=== PATIENT | female | born 1985 | race American Indian/Alaskan Native ===

== ENCOUNTER 2016-06-15 22:18 | Emergency (ER) | payer MEDICARE ==
[2016-06-16 00:05] VITALS: BP 148/105
[2016-06-16 02:15] LABS: Basophils % (Auto) 0.7 % (0.0-1.8); Eosinophils % (Auto) 2.2 % (0.0-4.3); Hematocrit 33.3 % (30.3-42.9); Hemoglobin 10.9 gm/dl (10.1-14.3); Mean Corpuscular HGB Conc 33 % (30-34); Mean Corpuscular Hemoglobin 30 pg (28-32); Mean Corpuscular Volume 92 fl (79-97); Platelet Count 139 K/mm3 (140-440); Red Blood Count 3.62 M/mm3 (3.65-5.03); White Blood Count 6.5 K/mm3 (4.5-11.0)
--- NOTE | 2016-06-16 05:17 | Emergency Department Report ---
HPI - General Chief Complaint: Vaginal Bleeding Time Seen by Provider: 06/16/16 04:41 - HPI HPI: The patient is a 30-year-old female presents for evaluation of abdominal pain and vaginal bleeding. The patient reports midline lower abdominal pain, crampy in quality, present for 24 hours, mild in severity, and associated with mild vaginal bleeding. She says that she has not had a period in 2 months. She states that she received a positive test one week ago. The patient denies fever, chills, night sweats, diarrhea, blood in the stool, dark tarry stool, dysuria, hematuria, flank pain, genital discharge, inability to pass flatus. ED Past Medical Hx - Past Medical History Hx Hypertension: Yes Hx Renal Disease: Yes (Hemodialysis on M-W-F) Additional medical history: diaylsis M, W, F - Surgical History Additional Surgical History: kidney transplant- pt states rejected kidney - Social History Smoking Status: Never Smoker Substance Use Type: None - Medications Home Medications: Home Medications Medication Instructions Recorded Confirmed Last Taken Type Doxazosin [Cardura] 1 mg PO QDAY 05/04/13 10/08/13 10/08/13 02:00 History Isosorb Dinit/Hydralazine [Bidil 1 tab PO BID 05/04/13 10/08/13 10/08/13 02:00 History 20/37.5MG] hydrALAZINE [Apresoline TAB] 25 mg PO BID 05/04/13 10/08/13 10/08/13 02:00 History Carvedilol [Coreg] 25 mg PO BID 10/08/13 10/08/13 10/07/13 23:00 History NIFEdipine [Nifedipine ER] 60 mg PO BID 10/08/13 10/08/13 10/07/13 23:00 History Sevelamer Carbonate [Renvela] 800 mg PO TIDWM 10/08/13 10/08/13 10/07/13 23:00 History ED Review of Systems ROS: Stated complaint: 8WKS PREG/BLEEDING Other details as noted in HPI Constitutional: denies: fever ENT: denies: throat or neck pain Respiratory: denies: cough, shortness of breath Cardiovascular: denies: chest pain Endocrine: denies unexplained weight loss or gain Gastrointestinal: reports abdominal pain, nausea Genitourinary: denies: dysuria reports VB Musculoskeletal: denies: leg swelling Skin: denies: rash Neurological: denies: headache Hematological/Lymphatic: denies: easy bleeding or easy bruising Psych: denies sadness or hopelessness Physical Exam - Physical Exam Vital Signs: Vital Signs 06/16/16 06/16/16 00:03 01:01 Temperature 98.3 F 98.3 F Pulse Rate 97 H 97 H Respiratory 20 20 Rate Blood Pressure 148/105 Blood Pressure 148/105 [Right] O2 Sat by Pulse 100 100 Oximetry Physical Exam: General: well-nourished, well-developed, no acute distress Head: Normocephalic, atraumatic Eyes: normal sclera ENT: Mucous membranes are pink and moist Neck: trachea midline, neck supple, No neck stiffness, no cervical adenopathy Respiratory: Breath sounds equal bilaterally, no wheezing, rales, or rhonchi Cardio: S1 and S2 present, no murmurs, rubs, gallops, capillary refill is brisk Abdomen: Normoactive bowel sounds, soft abdomen, suprapubic tenderness to palpation present, no rigidity, no guarding or rebound tenderness Chest WALL/Back: No tenderness to palpation of the chest wall, no CVA tenderness with percussion Musc: No pitting edema Skin: No rash Neuro: no facial drooping, normal speech Psych: Normal affect ED Course Vital Signs 06/16/16 06/16/16 00:03 01:01 Temperature 98.3 F 98.3 F Pulse Rate 97 H 97 H Respiratory 20 20 Rate Blood Pressure 148/105 Blood Pressure 148/105 [Right] O2 Sat by Pulse 100 100 Oximetry ED Medical Decision Making - Lab Data Result diagrams: 06/16/16 01:53 - Medical Decision Making The patient was seen and examined by myself. The patient is placed on a engine monitor and continuous pulse ox. On initial evaluation, the patient was found to be in no distress. Evaluation orders were placed. The patient declined pelvic exam. The patient declined pain medicine. Lab results are reassuring including non-concerning levels of RBC, hemoglobin, hematocrit, and negative test. As the patient has not concerning levels of RBC, hemoglobin, hematocrit, with normal vital signs, and there is no evidence of severe bleeding requiring transfusion or other emergent management at this time , the patient is stable for discharge with outpatient follow-up. The patient is given follow-up and return instructions. The patient expressed understanding and agreed with the plan. The patient is discharged in stable condition. Critical care attestation.: If time is entered above; I have spent that time in minutes in the direct care of this critically ill patient, excluding procedure time. ED Disposition Clinical Impression: Vaginal bleeding, Suprapubic abdominal pain Disposition: DISCHARGED TO HOME OR SELFCARE Is pt being admited?: No Does the pt Need Aspirin: No Condition: Stable Instructions: Dysmenorrhea (ED), Dysfunctional Uterine Bleeding (ED) Referrals: PRIMARY CARE, [Primary Care Provider] - 3-5 Days Time of Disposition: 05:00
== END 2016-06-16 05:15 | disposition home or self-care (01) ==
LOC: ED 22:18
DX: N93.9 Abnormal uterine and vaginal bleeding, unspecified (principal); R10.30 Lower abdominal pain, unspecified; I10 Essential (primary) hypertension; N28.9 Disorder of kidney and ureter, unspecified
CPT/HCPCS: 36415; 84702; 85025; 86850; 86900; 86901; 99283

== ENCOUNTER 2018-06-06 10:12 | Observation (INO) | payer MEDICARE ==
--- NOTE | 2018-06-06 10:40 | Emergency Department Report ---
ED General Adult HPI - General Chief complaint: Dyspnea/Respdistress Stated complaint: DIALYSIS TREATMENT Time Seen by Provider: 06/06/18 10:38 Source: patient Mode of arrival: Ambulatory Limitations: No Limitations - History of Present Illness Initial comments: Patient is a 32-year-old -Maldivian female who comes to the ER today complaining of fatigue. She states that she just does not feel good. She also reports that she is short of breath. Patient does home HD last done on last Wednesday. She has a left arm graft. The reason she has not done her HD is because she has been traveling and her machine has not return to the [place] [facility]. Home medications include hydralazine Coreg nifedipine arexia Patient does have a PCP Dr. Gutierres, the patient is unsure of her last name. Past medical history chronic kidney disease on HD hypertension -: Gradual Associated Symptoms: shortness of breath, weakness. denies: chest pain Treatments Prior to Arrival: none - Related Data Home Medications Medication Instructions Recorded Confirmed Last Taken Carvedilol [Coreg] 25 mg PO BID 10/08/13 06/06/18 06/05/18 NIFEdipine [Nifedipine ER] 60 mg PO BID 10/08/13 06/06/18 06/05/18 Cholecalciferol (Vitamin D3) 50,000 unit PO QWEEK 06/06/18 06/06/18 Unknown [Vitamin D3] Ferric Citrate (Nf) [Auryxia (Nf)] 420 mg PO TIDWM 06/06/18 06/06/18 06/05/18 cloNIDine [Catapres] 0.1 mg PO QHS 06/06/18 06/06/18 Unknown hydrALAZINE [Apresoline TAB] 100 mg PO BID 06/06/18 06/06/18 06/05/18 Allergies Allergy/AdvReac Type Severity Reaction Status Date / Time SUNDAR Inhibitors Allergy Angioedema Verified 10/08/13 03:34 ED Review of Systems ROS: Stated complaint: DIALYSIS TREATMENT Other details as noted in HPI Comment: All other systems reviewed and negative Constitutional: denies: chills, fever Eyes: denies: eye pain ENT: denies: ear pain Respiratory: see HPI, shortness of breath. denies: cough Cardiovascular: as per HPI. denies: chest pain Endocrine: denies: flushing Gastrointestinal: denies: abdominal pain Genitourinary: as per HPI, other (anuric). denies: urgency Musculoskeletal: denies: back pain Skin: denies: rash Neurological: as per HPI, weakness Psychiatric: denies: anxiety Hematological/Lymphatic: denies: easy bleeding ED Past Medical Hx - Past Medical History Previous Medical History?: Yes Hx Hypertension: Yes Hx Renal Disease: Yes (Hemodialysis on M-W-F) Additional medical history: diaylsis M, W, F; anemia - Surgical History Past Surgical History?: Yes Additional Surgical History: kidney transplant- pt states rejected kidney - Family History Family history: no significant - Social History Smoking Status: Former Smoker Substance Use Type: None - Medications Home Medications: Home Medications Medication Instructions Recorded Confirmed Last Taken Type Carvedilol [Coreg] 25 mg PO BID 10/08/13 06/06/18 06/05/18 History NIFEdipine [Nifedipine ER] 60 mg PO BID 10/08/13 06/06/18 06/05/18 History Cholecalciferol (Vitamin D3) 50,000 unit PO QWEEK 06/06/18 06/06/18 Unknown History [Vitamin D3] Ferric Citrate (Nf) [Auryxia (Nf)] 420 mg PO TIDWM 06/06/18 06/06/18 06/05/18 History cloNIDine [Catapres] 0.1 mg PO QHS 06/06/18 06/06/18 Unknown History hydrALAZINE [Apresoline TAB] 100 mg PO BID 06/06/18 06/06/18 06/05/18 History ED Physical Exam - General Limitations: No Limitations General appearance: alert - Head Head exam: Present: normocephalic - Eye Eye exam: Present: PERRL, EOMI - ENT ENT exam: Present: mucous membranes moist - Neck Neck exam: Present: normal inspection - Respiratory Respiratory exam: Present: normal lung sounds bilaterally, rales (B BASES) - Cardiovascular Cardiovascular Exam: Present: regular rate - GI/Abdominal GI/Abdominal exam: Present: soft, other (ROUND) - Rectal Rectal exam: Present: deferred - Extremities Exam Extremities exam: Present: normal inspection, other (AV GRAFT LA) - Back Exam Back exam: Present: normal inspection - Neurological Exam Neurological exam: Present: alert, oriented X3, normal gait - Psychiatric Psychiatric exam: Present: normal affect, normal mood - Skin Skin exam: Present: warm, dry, intact ED Course Vital Signs 06/06/18 06/06/18 10:20 12:42 Temperature 97.7 F Pulse Rate 93 H Respiratory 20 16 Rate Blood Pressure 144/101 O2 Sat by Pulse 98 Oximetry - Reevaluation(s) Reevaluation #1: 06/06/18 12:14 last hgb per pt 7 Reevaluation #2: 06/06/18 12:[address] Zamora- will admit discussed with Dr Briceño- he will see pt bed requested pt to main ED Reevaluation #3: 06/06/18 12:[address] Lynn ED Medical Decision Making - Lab Data Result diagrams: 06/06/18 11:30 06/06/18 11:30 - EKG Data -: EKG Interpreted by Me EKG shows normal: sinus rhythm - Radiology Data Radiology results: report reviewed, image reviewed - Medical Decision Making Labs 06/06/18 06/06/18 06/06/18 11:30 11:30 11:30 WBC 8.5 RBC 1.83 L Hgb 5.5 L* Hct 16.6 L* MCV 91 MCH 30 MCHC 33 RDW 19.3 H Plt Count 201 Sodium 131 L Potassium 6.8 H* Chloride 90.6 L Carbon Dioxide 19 L Anion Gap 28 BUN 78 H Creatinine 14.7 H Estimated GFR 3 BUN/Creatinine Ratio 5 Glucose 87 Calcium 8.6 Phosphorus 6.40 H NT-Pro-B Natriuret Pep 33052 H HCG, Qual Negative Vital Signs 06/06/18 06/06/18 10:20 12:42 Temperature 97.7 F Pulse Rate 93 H Respiratory 20 16 Rate Blood Pressure 144/101 O2 Sat by Pulse [address] ZAMORA NEPHROLOGY WILL DO HD K NOTED- D50, INSULIN, BICARB MOVED TO MAIN ED FOR MONITORING REPORT TO DR LYNN Critical care attestation.: If time is entered above; I have spent that time in minutes in the direct care of this critically ill patient, excluding procedure time. ED Disposition Clinical Impression: Fatigue, CKD (chronic kidney disease), Hyperkalemia Disposition: OP ADMIT IP TO THIS HOSP Is pt being admited?: Yes Does the pt Need Aspirin: No Condition: Stable Time of Disposition: 12:17
[2018-06-06 11:45] LABS: Mean Corpuscular HGB Conc 33 % (30-34); Mean Corpuscular Volume 91 fl (79-97); Platelet Count 201 K/mm3 (140-440); Red Blood Count 1.83 M/mm3 (3.65-5.03); Red Cell Distribution Width 19.3 % (13.2-15.2)
[2018-06-06 11:52] LABS: Hemoglobin 5.5 gm/dl (10.1-14.3)
[2018-06-06 11:53] LABS: Hematocrit 16.6 % (30.3-42.9)
[2018-06-06 12:01] LABS: Calcium 8.6 mg/dL (8.4-10.2)
--- NOTE | 2018-06-06 12:02 | XRay Report ---
ROUTINE CHEST, TWO VIEWS: HISTORY: Short of breath. Compared to 05/13/12 exam. Mild cardiomegaly and mild central pulmonary venous congestion are identified which appear relatively stable since 2013. The lungs are clear. No evidence for pneumonia, pleural effusion or pneumothorax. Mild levoscoliosis of the thoracolumbar spine is noted. IMPRESSION: Mild cardiomegaly and central pulmonary venous congestion.
[2018-06-06] MEDS ORDERED: D50W (25GM) Syringe IV ONE ×2 (12:21→13:19)
[2018-06-06] MEDS ORDERED: HumuLIN R IV ONE (12:21)
[2018-06-06] MEDS ORDERED: HumuLIN R ONE (13:22)
--- NOTE | 2018-06-06 14:11 | Consultation ---
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 Pt states she just returned home to [place] from a one month long trip from [place]. Pt brought her NxStage dialysis machine and Epogen medication on her trip, but didn't use her Epogen due to prolonged time outside of cooling container and she wasn't sure if it was safe to still use it. Pt states she was able to get smaller doses of Epogen (4000 units or so), but couldn't get higher doses due to increased cost of medication. Pt states she had her Hgb level checked during her trip in [facility] and was told her Hgb level was around 6. Providers at clinic recommended she receive blood transfusion, but she refused because of concern of increased risk of antibodies from blood transfusion effecting her ability to receive kidney transplant. Pt states she was denied a kidney transplant in the past due to antibodies in her blood from previous blood transfusions per pt. Pt states her last dialysis treatment was last Wednesday (06/01/18) and her NxStage Dialysis machine is supposed to be arrive home tomorrow. Pt states she is anuric. Pt seen in her room, no acute distress. No family at bedside. Labs showed K+ 6.8, Hgb level of 5.5. CXR showed mild cardiomegaly and central pulmonary venous congestion. We were consulted to evaluate this pt who has ESRD. Pt initially refused blood products upon arrival, but changed her mind when she found out her Hgb level was 5.5. Nurses at bedside who witnessed pt being agreeable to receiving blood transfusion. I spoke with dialysis nurse about HD orders and pRBCs needing to be transfused during HD today. Past History Past Medical History: anemia, dialysis, ESRD, hypertension Medications and Allergies Allergies Allergy/AdvReac Type Severity Reaction Status Date / Time SUNDAR Inhibitors Allergy Angioedema Verified 10/08/13 03:34 Home Medications Medication Instructions Recorded Confirmed Last Taken Type Carvedilol [Coreg] 25 mg PO BID 10/08/13 06/06/18 06/05/18 History NIFEdipine [Nifedipine ER] 60 mg PO BID 10/08/13 06/06/18 06/05/18 History Cholecalciferol (Vitamin D3) 50,000 unit PO QWEEK 06/06/18 06/06/18 Unknown History [Vitamin D3] Ferric Citrate (Nf) [Auryxia (Nf)] 420 mg PO TIDWM 06/06/18 06/06/18 06/05/18 History cloNIDine [Catapres] 0.1 mg PO QHS 06/06/18 06/06/18 Unknown History hydrALAZINE [Apresoline TAB] 100 mg PO BID 06/06/18 06/06/18 06/05/18 History Review of Systems Constitutional: fatigue, weakness, no fever Ears, nose, mouth and throat: no headache Cardiovascular: shortness of breath, dyspnea on exertion, no chest pain Gastrointestinal: no abdominal pain, no nausea, no vomiting, no diarrhea, no constipation, no hematemesis Genitourinary Female: other (anuric), no dysuria Integumentary: no wounds Neurological: no headaches Endocrine: fatigue Exam - Vital Signs Vital signs: Vital Signs Temp Pulse Resp BP Pulse Ox 97.7 F 93 H 20 144/101 98 06/06/18 10:20 06/06/18 10:20 06/06/18 10:20 06/06/18 10:20 06/06/18 10:20 - General Appearance General appearance: well-developed EENT: ATNC Neck: Present: neck supple Respiratory: Decreased Breath Sounds Heart: regular, S1S2, other (ACCESS: Left AVG + thrill and bruit noted) Gastrointestinal: Present: normoactive bowel sounds. Absent: tenderness Integumentary: warm and dry Neurologic: alert and oriented x3 Musculoskeletal: Present: other (trace edema to BLE) Psychiatric: mood/affect appropriate, cooperative Results - Lab Results 06/06/18 11:30 06/06/18 11:30 Most recent lab results Calcium 8.6 mg/dL (8.4-10.2) 06/06/18 11:30 Phosphorus 6.40 mg/dL (2.5-4.5) H 06/06/18 11:30 Assessment and Plan End Stage Renal Disease on HD: Non-Anion Gap Metabolic Acidosis: - Pt undergoes home HD every MWF - STAT HD today for UF and clearance via Left AVG, goal UF 3-4 liters as tolerated - Assess need for HD on daily basis - Left AVG + thrill and bruit noted - Resume home phosphorus binders - Needs Renal diet - Pt reports starting on HD at 10 yrs old, hx of DD kidney transplant at 16 yrs old, transplant failed after 3 yrs, and was started back on HD - Renally dose meds - Renal plan d/w Dr Villegas Hyperkalemia: - S/p IV insulin/D50, and sodium bicarbonate in ED on admission - STAT HD today - Low potassium diet Anemia: - Hgb level 5.5 on admission -> 06/06/18 - Pt agreeable to receiving blood products given low Hgb level (nurses at bedside) - Transfuse 2 units of pRBCs today - Epogen dosing for anemia management Hyponatremia: - Likely secondary to hypervolemia due to missed HD treatments - UF with HD - Monitor labs daily Essential Hypertension: - Resume home meds - Adjust meds as needed
[2018-06-06] MEDS ORDERED: NACL 0.9% 500 ML 500 ML IV NR (14:33)
[2018-06-06] MEDS ORDERED: PROCRIT SUB-Q SCH (15:00)
[2018-06-06] MEDS ORDERED: NACL 0.9% 100 ML IV PRN (16:07)
[2018-06-06 17:02] LABS: Hepatitis B Surface Antigen Non-Reactive (Negative); Hepatitis C Virus Antibody Non-Reactive (NonReactive)
[2018-06-06 20:45] VITALS: BP 186/103
[2018-06-06 21:21] LABS: Hematocrit 22.2 % (30.3-42.9); Hemoglobin 7.9 gm/dl (10.1-14.3)
--- NOTE | 2018-06-06 21:37 | Event Note ---
Date: 06/06/18 See dictated history and physical in the reports Volume overload Missed hemodialysis Hypertension Patient does home hemodialysis and does not have access to the machine because of traveling
--- NOTE | 2018-06-06 21:38 | Discharge Summary ---
Providers - Providers Date of Admission: 06/06/18 12:18 Date of discharge: 06/06/18 Attending physician: JESSICA ZAMORA 06/06/18 12:22 Consult to Physician [CONS] Stat Comment: Consulting Provider: ABBY ROBLES Physician Instructions: need HD Reason For Exam: k 6 Primary care physician: [facility] Hospitalization Condition: Stable Hospital course: See dictated discharge summary Disposition: - TO HOME OR SELFCARE Core Measure Documentation - Palliative Care Palliative Care/ Comfort Measures: Not Applicable - Core Measures Any of the following diagnoses?: none Exam - Constitutional Vitals: Temp Pulse Resp BP Pulse Ox 99.1 F 94 H 16 186/103 97 06/06/18 19:15 06/06/18 19:15 06/06/18 19:15 06/06/18 19:15 06/06/18 14:22 General appearance: Present: no acute distress, well-nourished - EENT Eyes: Present: PERRL ENT: hearing intact, clear oral mucosa - Neck Neck: Present: supple, normal ROM - Respiratory Respiratory effort: normal Respiratory: bilateral: CTA - Cardiovascular Heart Sounds: Present: S1 & S2. Absent: rub, click - Extremities Extremities: pulses symmetrical, No edema Peripheral Pulses: within normal limits - Abdominal General gastrointestinal: Present: soft, non-tender, non-distended, normal bowel sounds Female genitourinary: Present: normal - Integumentary Integumentary: Present: clear, warm, dry - Musculoskeletal Musculoskeletal: gait normal, strength equal bilaterally - Psychiatric Psychiatric: appropriate mood/affect, intact judgment & insight - Neurologic Neurologic: CNII-XII intact, moves all extremities Plan Activity: no restrictions Diet: renal Follow up with: JASKARAN MORENO MD [Primary Care Provider] - 3-5 Days
[2018-06-06] MEDS ORDERED: APRESOLINE PO SCH (22:00)
[2018-06-06] MEDS ORDERED: CATAPRES PO SCH (22:00)
[2018-06-06] MEDS ORDERED: NON-FORMULARY (Nifedipine [Nifedipine Er] 60 MG) PO SCH (22:00)
[2018-06-06] MEDS ORDERED: COREG PO SCH (22:00)
[2018-06-06] MEDS ORDERED: PROCARDIA XL PO SCH (22:00)
--- NOTE | 2018-06-06 22:51 | Discharge Summary ---
HOSPITAL COURSE: The patient was admitted for volume overload and requiring emergent hemodialysis. HOSPITAL COURSE: The patient was admitted for emergent hemodialysis. The patient had a low hemoglobin of 5.5 and hematocrit of 16.6, and potassium of 6.5. BNP was 46,945. The patient was taken for emergent dialysis. The patient was also given dextrose and insulin and bicarbonate in the Emergency Room. The patient was also transfused 2 units of blood, and ____ emergent hemodialysis. The patient's hemoglobin improved from 5.5 to 7.9 and hematocrit from 16.6 to 22.2. Potassium was not repeated. Potassium should have come down. The patient was symptomatically better. Hepatitis profile was negative. The patient wanted to go home, did not want to stay overnight for the potassium to be checked. A repeat hemoglobin and hematocrit were near normal 7.9 and 22.2. DISCHARGE DIAGNOSES: 1. Volume overload. 2. End-stage renal disease requiring dialysis. The patient stated that machine will come tomorrow at least and the machine has been ____. 3. Hypertension. Continue antihypertensives. 4. Anemia. Continue ferrous sulfate. Anemia, improved. 5. Hyperkalemia, was treated. Follow up with Nephrology KI[facility]. Continue home medications. In summary discharge diagnoses include hyperkalemia, hypertension, end-stage renal disease requiring hemodialysis, volume overload, and severe anemia, requiring blood transfusion. JOB# [id number] JORGE/DIAZ
--- NOTE | 2018-06-06 23:21 | History and Physical Report ---
CHIEF COMPLAINT: Shortness of breath for 1 day. HISTORY OF PRESENT ILLNESS: A 32-year-old -Micron[place] female with end-stage renal disease and hypertension, on home hemodialysis, who comes in for increasing shortness of breath of 1 day duration. The patient missed her dialysis since last Wednesday, she was due on Wednesday and today. The patient has a left arm graft. The patient had a portable hemodialysis machine, which was missing when she was traveling from some other city to [facility]. Because of the patient missing hemodialysis on Wednesday, due for Wednesday, and not having the hemodialysis machine, the patient comes here for increasing shortness of breath and orthopnea. No chest pain. PAST MEDICAL HISTORY: Significant for hypertension, end-stage renal disease, and anemia. Anemia secondary to chronic kidney disease. CURRENT MEDICATIONS: Coreg 25 twice a day, nifedipine 60 mg twice a day, vitamin D 50,000 units q. weekly, and ferric citrate 420 mg p.o. 3 times ____, clonidine 0.1 p.o. at bedtime, hydralazine 100 mg twice a day. PAST SURGICAL HISTORY: Left arm fistula and kidney transplant in the past, which was rejected. FAMILY HISTORY: Hypertension. SOCIAL HISTORY: Former smoker. REVIEW OF SYSTEMS: Significant for increasing shortness of breath and orthopnea. Otherwise, review of systems negative. PHYSICAL EXAMINATION: GENERAL: Young female, cooperative during examination. VITAL SIGNS: Blood pressure is 173/92, temperature is 99, pulse is 93, respirations are 16. HEENT: Unremarkable. Pupils equal and reactive. NECK: Supple, no lymphadenopathy, no thyromegaly. LUNGS: Clear to auscultation and percussion. Scattered rales bilaterally. CARDIOVASCULAR: S1, S2 heard. No gallop, no murmur, no rub. Apical impulse in left fifth intercostal space and midclavicular line. ABDOMEN: Soft and benign. No hepatosplenomegaly. No guarding, no rigidity. Hernial orifices are normal. EXTREMITIES: Good pedal pulses. No pedal edema. CENTRAL NERVOUS SYSTEM: Alert and oriented x4. Nonfocal exam. SKIN: Normal. LABORATORY DATA: Significant for hemoglobin of 5.5, hematocrit of 16.6. Potassium is 6.8. BNP is 46,945. EKG, normal sinus rhythm. Abnormal T waves. Heart rate of 92 per minute. Chest x-ray shows pulmonary venous congestion. ASSESSMENT AND PLAN: 1. Volume overload. The patient is taken for emergent hemodialysis. The patient stated that her hemodialysis machine may be coming today or tomorrow, wants to go home after the hemodialysis. 2. Hyperkalemia. Orders for hyperkalemia were given. The patient had sodium bicarbonate in the Emergency Room and insulin along with dextrose. Also, the patient is going for dialysis. 3. Hypertension. Continue antihypertensives. 4. Anemia. Continue ferrous sulfate and erythropoietin. 5. Vitamin D deficiency. Continue vitamin D as per schedule. She is not due for it today. 6. Deep venous thrombosis prophylaxis, heparin 5000 q. 12 and famotidine 10 mg twice a day. JOB# [id number] JORGE/DIAZ
== END 2018-06-06 23:12 | disposition home or self-care (01) ==
LOC: ED 10:12 → 3A 12:18
PROVIDERS: ADMIT Internal Medicine; ATTEND Internal Medicine
DX: E87.70 Fluid overload, unspecified (principal); I12.0 Hypertensive chronic kidney disease with stage 5 chronic kidney disease or end stage renal disease; N18.6 End stage renal disease; E87.5 Hyperkalemia; D64.9 Anemia, unspecified; E55.9 Vitamin D deficiency, unspecified; I82.409 Acute embolism and thrombosis of unspecified deep veins of unspecified lower extremity; Z87.891 Personal history of nicotine dependence; Z99.2 Dependence on renal dialysis; Z79.899 Other long term (current) drug therapy
CPT/HCPCS: 36415; 36430; 71046; 80048; 80074; 83880; 84100; 84484; 84703; 85014; 85018; 85027; 86850; 86900; 86901; 86920; 93005; 93010; 96374; 96375; 99284; G0378; J0885; P9016; G0257; J1815

== ENCOUNTER 2018-06-26 21:21 | Inpatient (IN) | payer MEDICARE ==
--- NOTE | 2018-06-26 21:37 | Emergency Department Report ---
Chief Complaint: Abdominal Pain Stated Complaint: PAIN ON LEFT SIDE Time Seen by Provider: 06/26/18 21:34 - HPI History of Present Illness: ckd on hd last hd Wednesday la fistula cold cough congestion for several days worsening today to l side cp pmh htn ckd hd mom a/w dad a/w pt has no card hx vss MSE completed MSE screening note: Focused history and physical exam performed. Due to findings the following was ordered: ED Disposition for MSE Condition: Stable Instructions: Abdominal Pain (ED)
[2018-06-26 21:59] LABS: Hematocrit 23.4 % (30.3-42.9); Hemoglobin 7.9 gm/dl (10.1-14.3); Mean Corpuscular HGB Conc 34 % (30-34); Mean Corpuscular Volume 94 fl (79-97); Platelet Count 149 K/mm3 (140-440); Red Blood Count 2.49 M/mm3 (3.65-5.03)
--- NOTE | 2018-06-26 22:17 | XRay Report ---
PROCEDURE: XR CHEST ROUTINE 2V TECHNIQUE: PA and lateral chest radiographs were obtained. HISTORY: chest pain COMPARISONS: June 06, 2018. FINDINGS: Heart: Normal. Mediastinum/Vessels: Normal. Lungs/Pleural space: Mild hilar infiltrates are identified bilaterally. No effusion or pneumothorax. Bony thorax: No acute osseous abnormality. IMPRESSION: Mild hilar infiltrates are identified bilaterally.. This document is electronically signed by Tanvi Heath DO., June 26 2018 10:15:31 PM ET
[2018-06-26 22:25] LABS: Albumin 3.6 g/dL (3.9-5); BUN/Creatinine Ratio 7; Blood Urea Nitrogen 71 mg/dL (7-17); Calcium 8.7 mg/dL (8.4-10.2); Hemolysis Index 4
[2018-06-26 22:26] LABS: Red Cell Distribution Width 23.3 % (13.2-15.2)
[2018-06-26 22:31] LABS: Alanine Aminotransferase < 5 units/L (7-56)
[2018-06-27] MEDS ORDERED: TYLENOL PO ONE (02:23)
[2018-06-27] MEDS ORDERED: TYLENOL ONE (02:27)
[2018-06-27] MEDS ORDERED: SUBLIMAZE IV ONE (08:28)
[2018-06-27] MEDS ORDERED: LEVAQUIN 500MG/100ML 500 MG/100 ML BAG IV ONE (08:28)
--- NOTE | 2018-06-27 08:30 | Emergency Department Report ---
ED General Adult HPI - General Chief complaint: Abdominal Pain Stated complaint: PAIN ON LEFT SIDE Time Seen by Provider: 06/26/18 21:34 Source: patient, RN notes reviewed, old records reviewed Mode of arrival: Ambulatory Limitations: No Limitations - History of Present Illness Initial comments: This is a 32-year-old female. Patient has a past medical history of home dialysis, Wednesday, Wednesday, Wednesday, hypertension, kidney transplant, which has subsequently fell. Primary nephrology: Dr. Bello Patient recently admitted to this hospital for urgent dialysis. Patient reports that she has been able to get her home dialysis machine. The patient presents to the emergency room today with complaint of nontraumatic left posterior thorax pain, left midline thorax pain, left anterior thorax pain, cough, cold-like symptoms "I feel a have pneumonia." The patient reports that she does not make urine. The patient has a cough and some shortness of breath. Her symptoms are constant for the past few days, worsened with deep inspiration, cough, movement, palpation. It decreased with rest. -: Gradual, days(s) Location: back Radiation: non-radiation Severity scale (0 -10): 10 Quality: aching Consistency: constant Improves with: other Worsens with: other Associated Symptoms: cough, shortness of breath - Related Data Home Medications Medication Instructions Recorded Confirmed Last Taken Carvedilol [Coreg] 25 mg PO BID 10/08/13 06/06/18 06/05/18 NIFEdipine [NIFEdipine ER] 60 mg PO BID 10/08/13 06/06/18 06/05/18 Cholecalciferol (Vitamin D3) 50,000 unit PO QWEEK 06/06/18 06/06/18 Unknown [Vitamin D3] Ferric Citrate (Nf) [Auryxia (Nf)] 420 mg PO TIDWM 06/06/18 06/06/18 06/05/18 cloNIDine [Catapres] 0.1 mg PO QHS 06/06/18 06/06/18 Unknown hydrALAZINE [Apresoline TAB] 100 mg PO BID 06/06/18 06/06/18 06/05/18 Previous Rx's Medication Instructions Recorded Last Taken Type Carvedilol [Coreg] 25 mg PO BID tablet 06/06/18 Unknown Rx NIFEdipine [NIFEdipine ER] 60 mg PO BID 06/06/18 Unknown Rx cloNIDine [Catapres] 0.1 mg PO QHS tablet 06/06/18 Unknown Rx hydrALAZINE [Apresoline TAB] 100 mg PO BID tab 06/06/18 Unknown Rx Allergies Allergy/AdvReac Type Severity Reaction Status Date / Time SUNDAR Inhibitors Allergy Angioedema Verified 10/08/13 03:34 ED Review of Systems ROS: Stated complaint: PAIN ON LEFT SIDE Other details as noted in HPI Constitutional: malaise Eyes: denies: vision change ENT: congestion Respiratory: cough, shortness of breath Cardiovascular: denies: palpitations, syncope Gastrointestinal: denies: nausea, vomiting Genitourinary: other (patient reports that she does not make urine) Musculoskeletal: back pain Skin: denies: lesions Neurological: weakness Psychiatric: anxiety ED Past Medical Hx - Past Medical History Hx Hypertension: Yes Hx Congestive Heart Failure: Yes Hx Renal Disease: Yes (Hemodialysis on -W-) Additional medical history: diaylsis M, W, F; anemia - Surgical History Additional Surgical History: kidney transplant- pt states rejected kidney, 2005, CARLOS graft - Social History Smoking Status: Former Smoker Substance Use Type: None - Medications Home Medications: Home Medications Medication Instructions Recorded Confirmed Last Taken Type Carvedilol [Coreg] 25 mg PO BID 10/08/13 06/06/18 06/05/18 History NIFEdipine [NIFEdipine ER] 60 mg PO BID 10/08/13 06/06/18 06/05/18 History Carvedilol [Coreg] 25 mg PO BID tablet 06/06/18 Unknown Rx Cholecalciferol (Vitamin D3) 50,000 unit PO QWEEK 06/06/18 06/06/18 Unknown History [Vitamin D3] Ferric Citrate (Nf) [Auryxia (Nf)] 420 mg PO TIDWM 06/06/18 06/06/18 06/05/18 History NIFEdipine [NIFEdipine ER] 60 mg PO BID 06/06/18 Unknown Rx cloNIDine [Catapres] 0.1 mg PO QHS 06/06/18 06/06/18 Unknown History cloNIDine [Catapres] 0.1 mg PO QHS tablet 06/06/18 Unknown Rx hydrALAZINE [Apresoline TAB] 100 mg PO BID 06/06/18 06/06/18 06/05/18 History hydrALAZINE [Apresoline TAB] 100 mg PO BID tab 06/06/18 Unknown Rx ED Physical Exam - General Limitations: No Limitations General appearance: alert, anxious - Head Head exam: Present: atraumatic, normocephalic - Eye Eye exam: Present: normal appearance, EOMI. Absent: nystagmus - ENT ENT exam: Present: normal exam, normal orophraynx, mucous membranes moist, normal external ear exam - Neck Neck exam: Present: normal inspection, full ROM. Absent: tenderness, meningismus - Respiratory Respiratory exam: Present: normal lung sounds bilaterally, chest wall tenderness. Absent: respiratory distress - Cardiovascular Cardiovascular Exam: Present: regular rate, normal rhythm, systolic murmur. Absent: bradycardia, tachycardia, irregular rhythm, diastolic murmur, rubs, gal lop - GI/Abdominal GI/Abdominal exam: Present: soft. Absent: distended, tenderness, guarding, rebound, rigid, pulsatile mass - Extremities Exam Extremities exam: Present: normal inspection (there is an upper extremity moises lysis access graft, no redness, pus or streaking), full ROM, other (2+ pulses noted in the bilateral upper, lower extremities. Compartments soft. No long bony tenderness. The pelvis is stable.). Absent: pedal edema, joint swelling, calf tenderness - Back Exam Back exam: Present: normal inspection, full ROM, tenderness, paraspinal tenderness. Absent: CVA tenderness (R), CVA tenderness (L), vertebral tenderness - Neurological Exam Neurological exam: Present: alert, normal gait, other (Extraocular movements intact. Tongue midline. No facial droop. Facial sensation intact to light touch in the V1, V2, V3 distribution bilaterally. 5 and 5 strength in 4 extremities.. Sensation is intact to light touch in 4 extremities.). Absent: motor sensory deficit - Psychiatric Psychiatric exam: Present: anxious - Skin Skin exam: Present: warm, dry, intact, normal color. Absent: rash ED Course Vital Signs 06/26/18 06/27/18 06/27/18 21:36 02:27 08:12 Temperature 98.6 F 97.5 F L Pulse Rate 86 87 Respiratory 18 20 Rate Blood Pressure 130/83 138/99 O2 Sat by Pulse 97 100 94 Oximetry 06/27/18 06/27/18 06/27/18 08:15 08:30 08:45 Temperature Pulse Rate Respiratory Rate Blood Pressure 139/103 143/106 133/95 O2 Sat by Pulse 98 98 99 Oximetry 06/27/18 06/27/18 06/27/18 09:00 09:15 09:30 Temperature Pulse Rate Respiratory Rate Blood Pressure 131/90 128/92 128/92 O2 Sat by Pulse 99 97 99 Oximetry 06/27/18 06/27/18 09:46 10:00 Temperature Pulse Rate Respiratory Rate Blood Pressure 128/92 149/84 O2 Sat by Pulse 98 94 Oximetry - Consultations Consultation #1: 06/27/18 10:27 Dr Rojas Session of renal to follow ED Medical Decision Making - Lab Data Result diagrams: 06/26/18 21:47 06/26/18 21:47 Vital Signs 06/26/18 06/27/18 21:36 02:27 Temperature 98.6 F 97.5 F L Pulse Rate 86 87 Respiratory 18 20 Rate Blood Pressure 130/83 138/99 O2 Sat by Pulse 97 100 Oximetry Lab Results 06/26/18 06/26/18 Range/Units 21:47 21:47 WBC 10.7 (4.5-11.0) K/mm3 RBC 2.49 L (3.65-5.03) M/mm3 Hgb 7.9 L (10.1-14.3) gm/dl Hct 23.4 L (30.3-42.9) % MCV 94 (79-97) fl MCH 32 (28-32) pg MCHC 34 (30-34) % RDW 23.3 H (13.2-15.2) % Plt Count 149 (140-440) K/mm3 Sodium 134 L (137-145) mmol/L Potassium 4.5 (3.6-5.0) mmol/L Chloride 91.9 L (98-107) mmol/L Carbon Dioxide 21 L (22-30) mmol/L Anion Gap 26 mmol/L BUN 71 H (7-17) mg/dL Creatinine 10.2 H (0.7-1.2) mg/dL Estimated GFR 5 ml/min BUN/Creatinine Ratio 7 % Glucose 86 (65-100) mg/dL Calcium 8.7 (8.4-10.2) mg/dL Phosphorus 6.50 H (2.5-4.5) mg/dL Total Bilirubin 0.30 (0.1-1.2) mg/dL AST 9 (5-40) units/L ALT < 5 L (7-56) units/L Alkaline Phosphatase 126 (35-129) units/L Troponin T 0.020 (0.00-0.029) ng/mL Total Protein 7.5 (6.3-8.2) g/dL Albumin 3.6 L (3.9-5) g/dL Albumin/Globulin Ratio 0.9 % - EKG Data -: EKG Interpreted by Al EKG shows normal: sinus rhythm Rate: normal - EKG Data 06/27/18 08:53 Sinus, 87 bpm, normal axis, QTC prolonged, high left ventricular voltage, atrial enlargement, abnormal EKG, not consistent with ST elevation myocardial infarction, multiple T-wave abnormalities, unchanged from prior EKG from June 2018 - Radiology Data Radiology results: report reviewed, image reviewed Print Report Referring Physician: WESLY CALERO Patient Name: EILEEN MEEKS Date of : 1985 Sex: Female Report Date: 2018-06-26 Report Status: [place] [address] XRay Report Signed Patient: EILEEN MEEKS MR#: [id number] : 1985 Acct:[id number] Age/Sex: 32 / F ADM Date: 06/26/18 Loc: ED Attending Dr: Ordering Physician: WESLY CALERO Date of Service: 06/26/18 Procedure(s): XR chest routine 2V Accession Number(s): [id number] cc: WESLY CALERO Fluoro Time In Minutes: PROCEDURE: XR CHEST ROUTINE 2V TECHNIQUE: PA and lateral chest radiographs were obtained. HISTORY: chest pain COMPARISONS: June 06, 2018. FINDINGS: Heart: Normal. Mediastinum/Vessels: Normal. Lungs/Pleural space: Mild hilar infiltrates are identified bilaterally. No effusion or pneumothorax. Bony thorax: No acute osseous abnormality. IMPRESSION: Mild hilar infiltrates are identified bilaterally.. This document is electronically signed by Tanvi Heath DO., June 26 2018 10:15:31 PM ET Transcribed By: [facility] Dictated By: TANVI HEATH MD Electronically Authenticated By: TANVI HEATH MD Signed Date/Time: 06/26/182216 DD/ 08 TD/TT: 06/26/182208 - Medical Decision Making Differential diagnosis, including but not limited to: Costochondritis, GERD, gastritis, hiatal hernia, pneumonia, pneumonitis, acute coronary syndrome Assessment and plan: 32-year-old female, with probable healthcare associated pneumonia. Patient is afebrile with reassuring vital signs, doubt pulmonary embolus given lack of tachycardia, lack of hypoxia, lack of lower extremity findings, and her history is most suggestive of respiratory illness. Covering nephrology has been paged as her primary site surveyor is not have inpatient privileges at this time, I have recommended admission for IV antibiotics, pain control and supportive therapy, patient verbalizes u nderstanding and is amenable to this plan of care. The hospital physician, Dr. Aurelia Dougherty, we'll admit the patient to the medical service. Critical care attestation.: If time is entered above; I have spent that time in minutes in the direct care of this critically ill patient, excluding procedure time. ED Disposition Clinical Impression: CKD (chronic kidney disease), HCAP (healthcare-associated pneumonia) Disposition: -09 OP ADMIT IP TO THIS HOSP Is pt being admited?: Yes Condition: Good
[2018-06-27 10:35] LABS: Calcium 9.3 mg/dL (8.4-10.2)
[2018-06-27 10:36] LABS: INR 1.08 (0.87-1.13)
[2018-06-27] MEDS ORDERED: MORPHINE IV PRN (11:21)
[2018-06-27] MEDS ORDERED: SODIUM CHLORIDE FLUSH SYRINGE 10 ML IV PRN (11:51)
[2018-06-27] MEDS ORDERED: ZOFRAN IV PRN (11:51)
[2018-06-27] MEDS ORDERED: FERRIC CITRATE 420 MG PO SCH (12:00)
--- NOTE | 2018-06-27 12:05 | History and Physical Report ---
History of Present Illness Date of admission: 06/27/18 08:55 Chief complaint: 32-year-old woman who presents with left-sided chest pain History of present illness: 32-year-old woman who presents complaining of left-sided pleuritic chest pain. She states that the pain is pretty severe, it occurs with breathing. She denies any cough, denies fever, denies shortness of breath at rest. The states that she is unable to take deep breaths due to the pain on the left side of her chest. She denies any chest trauma. Left chest pain is sharp, pleuritic, 7 out of 10, exacerbated by deep breaths, no relieving factors Past medical history; hypertension, end-stage renal disease on home dialysis Past surgical history AV graft Family history denies family history of end-stage renal disease Social history; she is , lives in time, independent of ADLs, denies smoking alcohol or illicit/prescription drug use Medications and Allergies Allergies Allergy/AdvReac Type Severity Reaction Status Date / Time SUNDAR Inhibitors Allergy Angioedema Verified 10/08/13 03:34 Home Medications Medication Instructions Recorded Confirmed Last Taken Type Carvedilol [Coreg] 25 mg PO BID 10/08/13 06/27/18 06/05/18 History NIFEdipine [NIFEdipine ER] 60 mg PO BID 10/08/13 06/27/18 06/05/18 History Cholecalciferol (Vitamin D3) 50,000 unit PO QWEEK 06/06/18 06/27/18 Unknown History [Vitamin D3] Ferric Citrate (Nf) [Auryxia (Nf)] 420 mg PO TIDWM 06/06/18 06/27/18 06/05/18 History cloNIDine [Catapres] 0.1 mg PO QHS 06/06/18 06/27/18 Unknown History hydrALAZINE [Apresoline TAB] 100 mg PO BID 06/06/18 06/27/18 06/05/18 History Active Meds: Active Medications Acetaminophen (Tylenol) 650 mg PO Q4H PRN PRN Reason: Pain MILD(1-3)/Fever >100.5/LYLES Carvedilol (Coreg) 25 mg PO BID [facility] Clonidine HCl (Catapres) 0.1 mg PO QHS [facility] Hydralazine HCl (Apresoline) 100 mg PO BID [facility] Miscellaneous Medication (Cholecalciferol (Vitamin D3) [Vitamin D3]) 50,000 unit PO QWEEK [facility] Miscellaneous Medication (Ferric Citrate) 420 mg PO TIDWM [facility] Morphine Sulfate (Morphine) 2 mg IV Q4H PRN PRN Reason: Pain, Moderate (4-6) Stop: 06/28/18 11:20 Last Admin: 06/27/18 11:50 Dose: 2 mg Documented by: Nifedipine (Procardia Xl) 60 mg PO BID [facility] Ondansetron HCl (Zofran) 4 mg IV Q8H PRN PRN Reason: Nausea And Vomiting Oxycodone/Acetaminophen (Percocet 5/325) 1 tab PO Q6H PRN PRN Reason: Pain, Moderate (4-6) Sodium Chloride (Sodium Chloride Flush Syringe 10 Ml) 10 ml IV BID [facility] Sodium Chloride (Sodium Chloride Flush Syringe 10 Ml) 10 ml IV PRN PRN PRN Reason: LINE FLUSH Review of Systems All systems: negative Constitutional: no anorexia Ears, nose, mouth and throat: no ear pain Cardiovascular: no chest pain Respiratory: no cough Gastrointestinal: no abdominal pain Genitourinary Female: no pelvic pain Menstruation: no other Rectal: no pain Musculoskeletal: no neck stiffness Integumentary: no rash Neurological: no head injury Psychiatric: no anxiety Endocrine: no cold intolerance Allergic/Immunologic: no urticaria Exam - Constitutional Vitals: Temp Pulse Resp BP Pulse Ox 97.5 F L 87 18 152/84 94 06/27/18 02:27 06/27/18 02:27 06/27/18 10:54 06/27/18 10:30 06/27/18 10:54 General appearance: Present: no acute distress, well-nourished - EENT Eyes: Present: PERRL ENT: hearing intact, clear oral mucosa - Neck Neck: Present: supple, normal ROM - Respiratory Respiratory effort: normal Respiratory: bilateral: rales - Cardiovascular Heart Sounds: Present: S1 & S2. Absent: rub, click - Extremities Extremities: pulses symmetrical, No edema Peripheral Pulses: within normal limits - Abdominal General gastrointestinal: Present: soft, non-tender, non-distended, normal bowel sounds Female genitourinary: Present: normal - Integumentary Integumentary: Present: clear, warm, dry - Musculoskeletal Musculoskeletal: gait normal, strength equal bilaterally - Psychiatric Psychiatric: appropriate mood/affect, intact judgment & insight - Neurologic Neurologic: CNII-XII intact, moves all extremities Results - Labs CBC & Chem 7: 06/27/18 16:22 06/27/18 13:30 Labs: Laboratory Last Values WBC 10.7 K/mm3 (4.5-11.0) 06/26/18 21:47 RBC 2.49 M/mm3 (3.65-5.03) L 06/26/18 21:47 Hgb 7.9 gm/dl (10.1-14.3) L 06/26/18 21:47 Hct 23.4 % (30.3-42.9) L 06/26/18 21:47 MCV 94 fl (79-97) 06/26/18 21:47 MCH 32 pg (28-32) 06/26/18 21:47 MCHC 34 % (30-34) 06/26/18 21:47 RDW 23.3 % (13.2-15.2) H 06/26/18 21:47 Plt Count 149 K/mm3 (140-440) 06/26/18 21:47 PT 14.7 Sec. (12.2-14.9) 06/27/18 09:44 INR 1.08 (0.87-1.13) 06/27/18 09:44 Sodium 132 mmol/L (137-145) L 06/27/18 09:44 Potassium 5.0 mmol/L (3.6-5.0) 06/27/18 09:44 Chloride 87.0 mmol/L (98-107) L 06/27/18 09:44 Carbon Dioxide 19 mmol/L (22-30) L 06/27/18 09:44 Anion Gap 31 mmol/L 06/27/18 09:44 BUN 77 mg/dL (7-17) H 06/27/18 09:44 Creatinine 11.0 mg/dL (0.7-1.2) H 06/27/18 09:44 Estimated GFR 5 ml/min 06/27/18 09:44 BUN/Creatinine Ratio 7 % 06/27/18 09:44 Glucose 96 mg/dL (65-100) 06/27/18 09:44 Lactic Acid 0.80 mmol/L (0.7-2.0) 06/27/18 09:44 Calcium 9.3 mg/dL (8.4-10.2) 06/27/18 09:44 Phosphorus 6.50 mg/dL (2.5-4.5) H 06/26/18 21:47 Total Bilirubin 0.30 mg/dL (0.1-1.2) 06/26/18 21:47 AST 9 units/L (5-40) 06/26/18 21:47 ALT < 5 units/L (7-56) L 06/26/18 21:47 Alkaline Phosphatase 126 units/L (35-129) 06/26/18 21:47 Troponin T 0.017 ng/mL (0.00-0.029) 06/27/18 09:44 Total Protein 7.5 g/dL (6.3-8.2) 06/26/18 21:47 Albumin 3.6 g/dL (3.9-5) L 06/26/18 21:47 Albumin/Globulin Ratio 0.9 % 06/26/18 21:47 - Imaging and Cardiology Chest x-ray: image reviewed (hilar infiltrates) Assessment and Plan Assessment and plan: 32F who presents with pleuritic left chest pain Diagnosis ESRD- anuric htn PNA? Plan HD per nephrology resume home meds empiric abx, levaquin given in ED on 06/27, will repeat CXR in 48 to r/o venous congestion obtain vq scan dvt ppx- heparin
[2018-06-27] MEDS ORDERED: PROCRIT SUB-Q PRN (12:41)
[2018-06-27] MEDS ORDERED: NACL 0.9% 100 ML IV PRN (12:41)
--- NOTE | 2018-06-27 12:41 | Consultation ---
History of Present Illness - Reason for Consult Consult date: 06/27/18 end stage renal disease - History of Present Illness The patient is a 32 YO female with history significant for HTN, Anemia, ESRD since 1996 on hemodialysis (Nxstage MWF), s/p failed kidney transplant (between 2002 and 2005) who presented to [facility] ER today with c/o left chest wall pain since yesterday. The pain is mostly on the left posterior and lateral thoracic wall, sharp in quality, not radiating and worse with deep inspiration, cough and movement. She also c/o cold like symptoms and thinks she has pneumonia. She received last dialysis three days ago at home and due for HD today. Patient denies fever, chills, dizziness, dysuria, hematuria, abd pain or sob. Nephrology was consulted for further evaluation. Past History Past Medical History: anemia, dialysis, ESRD, hypertension Medications and Allergies Allergies Allergy/AdvReac Type Severity Reaction Status Date / Time SUNDAR Inhibitors Allergy Angioedema Verified 10/08/13 03:34 Home Medications Medication Instructions Recorded Confirmed Last Taken Type Carvedilol [Coreg] 25 mg PO BID 10/08/13 06/27/18 06/05/18 History NIFEdipine [NIFEdipine ER] 60 mg PO BID 10/08/13 06/27/18 06/05/18 History Cholecalciferol (Vitamin D3) 50,000 unit PO QWEEK 06/06/18 06/27/18 Unknown History [Vitamin D3] Ferric Citrate (Nf) [Auryxia (Nf)] 420 mg PO TIDWM 06/06/18 06/27/18 06/05/18 History cloNIDine [Catapres] 0.1 mg PO QHS 06/06/18 06/27/18 Unknown History hydrALAZINE [Apresoline TAB] 100 mg PO BID 06/06/18 06/27/18 06/05/18 History Active Meds: Active Medications Acetaminophen (Tylenol) 650 mg PO Q4H PRN PRN Reason: Pain MILD(1-3)/Fever >100.5/LYLES Carvedilol (Coreg) 25 mg PO BID [facility] Clonidine HCl (Catapres) 0.1 mg PO QHS [facility] Heparin Sodium (Porcine) (Heparin) 5,000 unit SUB-Q Q8HR [facility] Hydralazine HCl (Apresoline) 100 mg PO BID [facility] Miscellaneous Medication (Cholecalciferol (Vitamin D3) [Vitamin D3]) 50,000 unit PO QWEEK [facility] Miscellaneous Medication (Ferric Citrate) 420 mg PO TIDWM [facility] Morphine Sulfate (Morphine) 2 mg IV Q4H PRN PRN Reason: Pain, Moderate (4-6) Stop: 06/28/18 11:20 Last Admin: 06/27/18 11:50 Dose: 2 mg Documented by: Nifedipine (Procardia Xl) 60 mg PO BID [facility] Ondansetron HCl (Zofran) 4 mg IV Q8H PRN PRN Reason: Nausea And Vomiting Oxycodone/Acetaminophen (Percocet 5/325) 1 tab PO Q6H PRN PRN Reason: Pain, Moderate (4-6) Sodium Chloride (Sodium Chloride Flush Syringe 10 Ml) 10 ml IV BID [facility] Sodium Chloride (Sodium Chloride Flush Syringe 10 Ml) 10 ml IV PRN PRN PRN Reason: LINE FLUSH Review of Systems Constitutional: no weight loss, no weight gain, no fever, no chills, no anorexia, no poor appetite Breasts: deferred Cardiovascular: high blood pressure, no chest pain, no orthopnea, no palpitations, no edema, no syncope, no lightheadedness, no shortness of breath, no dyspnea on exertion, no leg edema, no decreased exercise tolerance Respiratory: cough, no hemoptysis, no shortness of breath, no dyspnea on exertio n Gastrointestinal: no abdominal pain, no nausea, no vomiting, no diarrhea, no hematemesis, no melena Genitourinary Female: no dysuria, no hematuria Rectal: no bleeding Musculoskeletal: no muscle weakness, no muscle cramps, no gait dysfunction Integumentary: no rash, no wounds, no jaundice Neurological: no paralysis, no weakness, no syncope, no change in speech, no change in mentation, no confusion Exam - Vital Signs Vital signs: Vital Signs Temp Pulse Resp BP Pulse Ox 98.6 F 86 18 130/83 97 06/26/18 21:36 06/26/18 21:36 06/26/18 21:36 06/26/18 21:36 06/26/18 21:36 - General Appearance General appearance: well-developed, well-nourished, appears stated age, other (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 Absent: tenderness, distended Integumentary: no rash, warm and dry Neurologic: no focal deficit, no asterixis, alert and oriented x3 Musculoskeletal: Present: other (no edema, left arm AVG) Results - Lab Results 06/27/18 16:22 06/27/18 13:30 Most recent lab results Calcium 9.3 mg/dL (8.4-10.2) 06/27/18 09:44 Phosphorus 6.50 mg/dL (2.5-4.5) H 06/26/18 21:47 Assessment and Plan 1. ESRD: Patient is on home hemodialysis with Nxstage on MWFs. Continue HD three times a week. HD today. 3. Anemia: Epogen. 3. Suspected pnuemonia. 4. HTN. UF with HD today. 5. Chest wall pain.
[2018-06-27] MEDS ORDERED: HEPARIN SUB-Q SCH (14:00)
[2018-06-27 14:27] LABS: Calcium 8.6 mg/dL (8.4-10.2)
[2018-06-27] MEDS ORDERED: HEPARIN/ 0.45% NACL-25,000 UNIT/500 ML 25,000 UNIT/500 ML BAG IV SCH (16:00)
[2018-06-27 16:38] LABS: Hematocrit 29.1 % (30.3-42.9); Hemoglobin 9.8 gm/dl (10.1-14.3)
[2018-06-27 16:46] LABS: INR 1.12 (0.87-1.13)
[2018-06-27 16:47] LABS: Partial Thromboplastin Time 38.4 Sec. (24.2-36.6)
[2018-06-27] MEDS: PERCOCET 5/325 PO PRN (17:31)
[2018-06-27] MEDS ORDERED: APRESOLINE IV PRN (19:04)
--- NOTE | 2018-06-27 19:08 | Nuclear Medicine Report ---
PROCEDURE: NM LUNG SCAN PERF/VENT TECHNIQUE: Perfusion imaging of the lungs was performed in multiple planar projections. Ventilation images were obtained in the posterior projection during inhalation, equilibrium, and washout phases. Correlation with a chest x-ray was not performed. DOSE: 12.3 millicuries Xe-133 gas; 5.3 millicuries 99m Tc MAA given IV. Injection site: RIGHT antecub ital fossa. HISTORY: chest pain COMPARISONS: None . FINDINGS: There is a sharply demarcated segmental perfusion defect involving the anteromedial basal segment of the left lower lobe. However, there is decreased ventilation in this region as well. Findings would b e consistent with a matched defect. Otherwise, the tracer distribution on perfusion imaging is homogeneous throughout. No unmatched segme ntal or subsegmental perfusion defects are identified to suggest the presence of pulmonary embolism. The ventilation study demonstrates decreased uptake in the left base. No evidence for gas trapping is noted. IMPRESSION: Matched segmental perfusion defect in the anteromedial basal segment of the left lower lobe. Findings are consistent with a low probability [place] V/Q scan This document is electronically signed by Collette Ambrose MD., June 27 2018 07:06:14 PM ET
[2018-06-27] MEDS ORDERED: NACL 0.9 (PRIMING MACHINE ONLY DIALYSIS) MC ONE (20:22)
[2018-06-27] MEDS ORDERED: NON-FORMULARY (Nifedipine [Nifedipine Er] 60 MG) PO SCH (22:00)
[2018-06-27] MEDS: PROCARDIA XL PO SCH ×2 (22:25)
[2018-06-27] MEDS: CATAPRES PO SCH (22:25)
[2018-06-27] MEDS: APRESOLINE PO SCH ×2 (22:25)
[2018-06-27] MEDS: COREG PO SCH (22:26)
[2018-06-27] MEDS: SODIUM CHLORIDE FLUSH SYRINGE 10 ML IV SCH (22:26)
[2018-06-27] MEDS: TYLENOL PO PRN (23:05)
[2018-06-28] MEDS: PERCOCET 5/325 PO PRN ×2 (00:35→10:10)
--- NOTE | 2018-06-28 09:15 | Progress Note ---
Assessment and Plan 1. ESRD: Patient is on home hemodialysis with Nxstage on MWFs. Continue HD three times a week. Next HD tomorrow. 3. Anemia: Epogen. 3. Suspected pnuemonia. 4. HTN. BP controlled. 5. Chest wall pain. Subjective Date of service: 06/28/18 Interval history: Patient is doing ok. Objective - Vital Signs Vital signs: Vital Signs - 12hr 06/27/18 06/27/18 06/27/18 22:00 22:21 22:25 Temperature 101.4 F H Pulse Rate 99 H 105 H Respiratory 26 H 44 H Rate Respiratory 19 Rate [ Generalized] Blood Pressure 141/90 157/92 O2 Sat by Pulse 94 95 Oximetry 06/27/18 06/27/18 06/27/18 22:26 22:37 23:05 Temperature 101.4 F H Pulse Rate 105 H 99 H Respiratory 44 H 26 H Rate Respiratory Rate [ Generalized] Blood Pressure 157/92 O2 Sat by Pulse 96 Oximetry 06/28/18 06/28/18 06/28/18 00:05 00:35 00:37 Temperature 99.3 F Pulse Rate Respiratory 25 H 20 20 Rate Respiratory Rate [ Generalized] Blood Pressure 125/73 O2 Sat by Pulse Oximetry 06/28/18 06/28/18 01:35 04:53 Temperature 98.4 F Pulse Rate 90 Respiratory 18 36 H Rate Respiratory Rate [ Generalized] Blood Pressure 135/82 O2 Sat by Pulse 94 Oximetry - General Appearance General appearance: well-developed, well-nourished, appears stated age, other (RN present at the bedside, not in distress) EENT: ATNC, PERRL, hearing intact, vision intact Neck: supple Respiratory: Present: Clear to Ascultation Cardiology: regular, S1S2, no murmurs Gastrointestinal: normoactive bowel sounds, no tenderness, no distended Integumentary: no rash, warm and dry Neurologic: no focal deficit, no asterixis, alert and oriented x3 Musculoskeletal: other (no edema, left arm AVG) - Lab 06/27/18 16:22 06/27/18 13:30 Most recent lab results Calcium 8.6 mg/dL (8.4-10.2) 06/27/18 13:30 Phosphorus 6.50 mg/dL (2.5-4.5) H 06/26/18 21:47 Medications & Allergies - Medications Allergies/Adverse Reactions: Allergies SUNDAR Inhibitors Allergy (Verified 10/08/13 03:34) Angioedema Home Medications: Home Medications Medication Instructions Recorded Confirmed Last Taken Type Carvedilol [Coreg] 25 mg PO BID 10/08/13 06/27/18 06/05/18 History NIFEdipine [NIFEdipine ER] 60 mg PO BID 10/08/13 06/27/18 06/05/18 History Cholecalciferol (Vitamin D3) 50,000 unit PO QWEEK 06/06/18 06/27/18 Unknown History [Vitamin D3] Ferric Citrate (Nf) [Auryxia (Nf)] 420 mg PO TIDWM 06/06/18 06/27/18 06/05/18 History cloNIDine [Catapres] 0.1 mg PO QHS 06/06/18 06/27/18 Unknown History hydrALAZINE [Apresoline TAB] 100 mg PO BID 06/06/18 06/27/18 06/05/18 History Active Medications: Generic Name Dose Route Start Last Admin Trade Name Freq PRN Reason Stop Dose Admin Acetaminophen 650 mg 06/27/18 11:51 06/27/18 23:05 Tylenol PO 650 mg Q4H PRN Administration Pain MILD(1-3)/Fever >100.5/LYLES Carvedilol 25 mg 06/27/18 22:00 06/27/18 22:26 Coreg PO 25 mg BID PINA Administration Clonidine HCl 0.1 mg 06/27/18 22:00 06/27/18 22:25 Catapres PO 0.1 mg QHS [facility] Administration Epoetin Thiago 20,000 unit 06/27/18 12:41 Procrit SUB-Q RADHA PRN hemodialysis Ergocalciferol 50,000 unit 06/28/18 10:00 Vitamin D2 PO Tu PINA Hydralazine HCl 100 mg 06/27/18 22:00 06/27/18 22:25 Apresoline PO Not Given BID PINA Hydralazine HCl 10 mg 06/27/18 19:04 Apresoline IV Q4H PRN BP >160/100 Sodium Chloride 100 mls @ 999 mls/hr 06/27/18 12:41 Nacl 0.9% IV RADHA PRN Hypotension Heparin Sodium/Sodium Chloride 25,000 unit in 500 mls @ 15 mls/hr 06/27/18 16:00 Heparin/ 0.45% Nacl-25,000 Unit/500 Ml IV TITR PINA Protocol 750 UNITS/HR Miscellaneous Medication 420 mg 06/27/18 12:00 Ferric Citrate PO TIDWM [facility] Morphine Sulfate 2 mg 06/27/18 11:21 06/27/18 11:50 Morphine IV 06/28/18 11:20 2 mg Q4H PRN Administration Pain, Moderate (4-6) Nifedipine 60 mg 06/27/18 22:00 06/27/18 22:25 Procardia Xl PO Not Given BID [facility] Ondansetron HCl 4 mg 06/27/18 11:51 Zofran IV Q8H PRN Nausea And Vomiting Oxycodone/Acetaminophen 1 tab 06/27/18 11:21 06/28/18 00:35 Percocet 5/325 PO 1 tab Q6H PRN Administration Pain, Moderate (4-6) Sodium Chloride 10 ml 06/27/18 22:00 06/27/18 22:26 Sodium Chloride Flush Syringe 10 Ml IV 10 ml BID PINA Administration Sodium Chloride 10 ml 06/27/18 11:51 Sodium Chloride Flush Syringe 10 Ml IV PRN PRN LINE FLUSH
[2018-06-28] MEDS: PROCARDIA XL PO SCH ×2 (10:02→23:44)
[2018-06-28] MEDS: APRESOLINE PO SCH ×2 (10:03→23:43)
[2018-06-28] MEDS: COREG PO SCH ×2 (10:03→23:43)
[2018-06-28] MEDS: SODIUM CHLORIDE FLUSH SYRINGE 10 ML IV SCH ×2 (10:04→23:44)
[2018-06-28] MEDS ORDERED: VANCOMYCIN PHARMACY TO DOSE IV SCH (12:00)
[2018-06-28] MEDS: VITAMIN D2 PO SCH (12:29)
--- NOTE | 2018-06-28 14:57 | Consultation ---
History of Present Illness - Reason for Consult Consult date: 06/28/18 pneumonia and fever Requesting physician: MALCOLM RODRIGUES - History of Present Illness 32 y/o female with history ESRD on home HD via left AVG, she is on HD since 1996 s/p failed kidney transplant (between 2002 and 2005); admitted on 06/26/2018 due to 2-day history of cough with clear sputum and severe sharp left chest pain. Patient reports pain is worse with inspiration, coughing and activity. She reports 2 weeks ago she had a "bad cold" with runny nose, chest congestion. She went to see her PCP and was given Augmetin and prednisone for 10 days. She reports multiple sick contacts recently. She stays at home. She denies N/V/D. She is from [facility], came to [facility] 20 years ago. She reports previous tobocco abuse quit in 2016. Denies ETOH/drugs. She has a partner who has been together for several years. Recent HIV test negative. Of note, she went to [facility] in Mar 2018 for 2 months. She reports she did not take bottle water and she thinks she could get sick from that. Denies TB exposures. Of note, came to the ED for fatigue found with Hg 5. PCP Dr. Gutierres In the ED, temp 98.6, HR 86, R 18, O2 sat 97%, BP 130/83. WBC 10.7, Hg 7.9, Plat 149. Creat 10.2. Blood culture 06/26/2018 [facility] in clusters 2 of 4 bottles. CXR mild hilar infiltrates bilateral. VQ scan low probability for PE. Review of Systems: General: no fever, chills, nightsweats, unintentional weight change, or change in appetite Cutaneous: no rash, pruritus Head: no headaches or injury Eyes: no changes in vision, eye pain, double vision Ears: no ear pain, ear discharge, ringing or hearing loss Nose: no nose bleeding, stuffiness Mouth & throat: no bleeding gums, no horseness, no dental problems, or swollen glands Neck: no pain, node enlargement/lumps, tyroid enlargement or tenderness Respiratory: + cough, wheezing, +sputum, hemoptysis, +pleuritic chest pain Cardiovascular: no chest pain, leg edema, cyanosis, HOLDER, orthopnea Musculoskeletal: no decreased joint motion, bone or joint pain, joint swelling, muscle aches Gastrointestinal: no nausea, vomiting, hematemesis, diarrhea, constipation, melena, bright red blood in stools, fecal incontinence, jaundice Genitourinary/Reproductive: no frequent urination, dysuria, hematuria, incontinence Neurogical: no seizures, no headaches, no weakness, no paresthesias, no loss of speech or vision; no memory loss, no vertigo, no tremors, no numbness Psychiatric: stable mood; no excessive anxiety, sadness or moodiness Past History Past Medical History: anemia, dialysis, ESRD, hypertension Medications and Allergies Allergies Allergy/AdvReac Type Severity Reaction Status Date / Time SUNDAR Inhibitors Allergy Angioedema Verified 10/08/13 03:34 Home Medications Medication Instructions Recorded Confirmed Last Taken Type Carvedilol [Coreg] 25 mg PO BID 10/08/13 06/27/18 06/05/18 History NIFEdipine [NIFEdipine ER] 60 mg PO BID 10/08/13 06/27/18 06/05/18 History Cholecalciferol (Vitamin D3) 50,000 unit PO QWEEK 06/06/18 06/27/18 Unknown History [Vitamin D3] Ferric Citrate (Nf) [Auryxia (Nf)] 420 mg PO TIDWM 06/06/18 06/27/18 06/05/18 History cloNIDine [Catapres] 0.1 mg PO QHS 06/06/18 06/27/18 Unknown History hydrALAZINE [Apresoline TAB] 100 mg PO BID 06/06/18 06/27/18 06/05/18 History Active Meds: Active Medications Acetaminophen (Tylenol) 650 mg PO Q4H PRN PRN Reason: Pain MILD(1-3)/Fever >100.5/LYLES Last Admin: 06/27/18 23:05 Dose: 650 mg Documented by: Carvedilol (Coreg) 25 mg PO BID [facility] Last Admin: 06/28/18 10:03 Dose: 25 mg Documented by: Clonidine HCl (Catapres) 0.1 mg PO QHS [facility] Last Admin: 06/27/18 22:25 Dose: 0.1 mg Documented by: Epoetin Thiago (Procrit) 20,000 unit SUB-Q RADHA PRN PRN Reason: hemodialysis Ergocalciferol (Vitamin D2) 50,000 unit PO Tu [facility] Last Admin: 06/28/18 12:29 Dose: 50,000 unit Documented by: Hydralazine HCl (Apresoline) 100 mg PO BID [facility] Last Admin: 06/28/18 10:03 Dose: 100 mg Documented by: Hydralazine HCl (Apresoline) 10 mg IV Q4H PRN PRN Reason: BP >160/100 Sodium Chloride (Nacl 0.9%) 100 mls @ 999 mls/hr IV RADHA PRN PRN Reason: Hypotension Heparin Sodium/Sodium Chloride (Heparin/ 0.45% Nacl-25,000 Unit/500 Ml) 25,000 unit in 500 mls @ 15 mls/hr IV TITR PINA; Protocol Last Admin: 06/28/18 12:29 Dose: 750 units/hr, 15 mls/hr Documented by: Miscellaneous Medication (Ferric Citrate) 420 mg PO TIDWM [facility] Nifedipine (Procardia Xl) 60 mg PO BID [facility] Last Admin: 06/28/18 10:02 Dose: 60 mg Documented by: Ondansetron HCl (Zofran) 4 mg IV Q8H PRN PRN Reason: Nausea And Vomiting Oxycodone/Acetaminophen (Percocet 5/325) 1 tab PO Q6H PRN PRN Reason: Pain, Moderate (4-6) Last Admin: 06/28/18 10:10 Dose: 1 tab Documented by: Sodium Chloride (Sodium Chloride Flush Syringe 10 Ml) 10 ml IV BID [facility] Last Admin: 06/28/18 10:04 Dose: 10 ml Documented by: Sodium Chloride (Sodium Chloride Flush Syringe 10 Ml) 10 ml IV PRN PRN PRN Reason: LINE FLUSH Physical Examination - Physical Exam Narrative exam: General appearance: Alert in NAD, conversant Eyes: anicteric sclerae, moist conjunctivae; no lid-lag; PERRLA HENT: Atraumatic; oropharynx clear with moist mucous membranes and no mucosal ulcerations/no oral thrush; normal hard and soft palate. Normal external ears. Neck: Trachea midline; supple, no thyromegaly or lymphadenopathy Lungs: sayra crackles CV: RRR Abdomen: Soft, non-tender; no masses or hepatosplenomegaly Extremities: No peripheral edema or extremity lymphadenopathy. Left AVG Skin: Normal temperature, turgor and texture; no rash, ulcers or subcutaneous nodules Psych: Appropriate affect, alert and oriented to person, place and time. Neuro: alert and oriented x 3. Moving all extermities - Constitutional Vitals: Vital Signs Temp Pulse Resp BP Pulse Ox 98.3 F 95 H 14 128/72 97 06/28/18 11:56 06/28/18 11:56 06/28/18 11:56 06/28/18 11:56 06/28/18 11:56 Temperature -Last 24 Hours Temperature 98.3 F Temperature 98.4 F Temperature 99.3 F Temperature 101.4 F Temperature 101.4 F Temperature 97.8 F Temperature 98.3 F Results - Labs CBC & Chem 7: 06/27/18 16:22 06/27/18 13:30 Labs: Abnormal lab results 06/27/18 06/27/18 Range/Units 16:22 16:23 Hgb 9.8 L (10.1-14.3) gm/dl Hct 29.1 L (30.3-42.9) % PT 15.1 H (12.2-14.9) Sec. APTT 38.4 H (24.2-36.6) Sec. Assessment and Plan Cultures: Blood culture 06/26/2018 [facility] in clusters 2 of 4 bottles. Assessment: 32 y/o female with history ESRD on home HD via left AVG, she is on HD since 1996 s/p failed kidney transplant (between 2002 and 2005); admitted on 06/26/2018 due to 2-day history of cough with clear sputum and severe sharp left chest pain: 1) Sepsis: Not Present on admission, noted a fever at 101.4 on 06/27/2018 with tachycardia and tachypnea. Etiology most likely GPC bacteremia +/- pneumonia. U A not obtain she does not make urine. 2) Bilateral pneumonia: patient had a "bad cold" with runny nose, chest congestion 2 weeks before admission treated with Augmetin and prednisone for 10 days. She reports multiple sick contacts recently. Recently came frim [place] in Mar 2018 for 2 months. Denies TB exposures. DDX CAP less likely TB. CXR mild hilar infiltrates bilateral. VQ scan low probability for PE. 3) GPC in clusters bacteremia: real v/s contaminant ? source unclear AVG. - Blood culture 06/26/2018 [facility] in clusters 2 of 4 bottles. 4) Anemia Recommendations: - airborn isolation until TB is r/o - chest CT w/o contrast - check quatiferon TB gold - follow-up blood cultures - repeat blood cultures today - TTE - obtain respiratory cultures, C-reactive protein (CRP) - check influenza rapid antigen and PCR in nasopharinx - check Legionella urine antigen, Streptococcus pneumoniae urine antigen, Mycoplasma serology, Chlamydia pneumophila serology - start vancomycin renally adjusted - add azithromycin and ceftriaxone for now Will follow. Makenzie Regan MD Infectious Diseases Hospitalist Medical Director [facility] ([facility] M [phone] O [phone]
[2018-06-28] MEDS ORDERED: .VANCOMYCIN VIAL 1,000 MG in NACL 0.9% 100 ML IV SCH (15:00)
--- NOTE | 2018-06-28 16:04 | Progress Note ---
Assessment and Plan Assessment and plan: 32F who presents with pleuritic left chest pain Diagnosis ESRD- anuric htn PNA, sepsis Bacteremia Plan HD per nephrology resume home meds VQ scan and CT angiogram negative for PE but CT scan does confirm pneumonia and suspicious lesion which may be due to TB -Respiratory isolation, antibiotics per ID -DVT prophylaxis with heparin History Interval history: Patient has had fever, continues to have left-sided chest pain, having occasional dry cough. Denies vomiting, denies focal weakness, denies seizures Hospitalist Physical - Physical exam Narrative exam: General.: Appears well, no distress, nontoxic HEENT: Moist mucous membranes, extraocular muscles intact, no lymphadenopathy Neck: supple Cardiac: S1-S2 heard Lungs: Crackles on left upper lobe Abdomen: soft , nontender, nondistended, bowel sounds positive Extremities: no edema clubbing or cyanosis Skin: no rash or lesions Neurologic: no gross focal deficits Psych: calm, and cooperative - Constitutional Vitals: Temp Pulse Resp BP Pulse Ox 98.3 F 95 H 14 128/72 97 06/28/18 11:56 06/28/18 11:56 06/28/18 11:56 06/28/18 11:56 06/28/18 11:56 General appearance: Present: no acute distress, well-nourished Results - Labs CBC & Chem 7: 06/29/18 04:40 06/27/18 13:30 Labs: Laboratory Last Values WBC 10.7 K/mm3 (4.5-11.0) 06/26/18 21:47 RBC 2.49 M/mm3 (3.65-5.03) L 06/26/18 21:47 Hgb 9.8 gm/dl (10.1-14.3) L 06/27/18 16:22 Hct 29.1 % (30.3-42.9) L 06/27/18 16:22 MCV 94 fl (79-97) 06/26/18 21:47 MCH 32 pg (28-32) 06/26/18 21:47 MCHC 34 % (30-34) 06/26/18 21:47 RDW 23.3 % (13.2-15.2) H 06/26/18 21:47 Plt Count 182 K/mm3 (140-440) 06/27/18 16:22 PT 15.1 Sec. (12.2-14.9) H 06/27/18 16:23 INR 1.12 (0.87-1.13) 06/27/18 16:23 APTT 38.4 Sec. (24.2-36.6) H 06/27/18 16:23 Sodium 131 mmol/L (137-145) L 06/27/18 13:30 Potassium 4.8 mmol/L (3.6-5.0) 06/27/18 13:30 Chloride 88.7 mmol/L (98-107) L 06/27/18 13:30 Carbon Dioxide 19 mmol/L (22-30) L 06/27/18 13:30 Anion Gap 28 mmol/L 06/27/18 13:30 BUN 81 mg/dL (7-17) H 06/27/18 13:30 Creatinine 11.3 mg/dL (0.7-1.2) H 06/27/18 13:30 Estimated GFR 5 ml/min 06/27/18 13:30 BUN/Creatinine Ratio 7 % 06/27/18 13:30 Glucose 82 mg/dL (65-100) 06/27/18 13:30 Lactic Acid 0.80 mmol/L (0.7-2.0) 06/27/18 09:44 Calcium 8.6 mg/dL (8.4-10.2) 06/27/18 13:30 Phosphorus 6.50 mg/dL (2.5-4.5) H 06/26/18 21:47 Total Bilirubin 0.30 mg/dL (0.1-1.2) 06/26/18 21:47 AST 9 units/L (5-40) 06/26/18 21:47 ALT < 5 units/L (7-56) L 06/26/18 21:47 Alkaline Phosphatase 126 units/L (35-129) 06/26/18 21:47 Troponin T 0.017 ng/mL (0.00-0.029) 06/27/18 09:44 Total Protein 7.5 g/dL (6.3-8.2) 06/26/18 21:47 Albumin 3.6 g/dL (3.9-5) L 06/26/18 21:47 Albumin/Globulin Ratio 0.9 % 06/26/18 21:47 Active Medications - Current Medications Current Medications: Generic Name Dose Route Start Last Admin Trade Name Freq PRN Reason Stop Dose Admin Acetaminophen 650 mg 06/27/18 11:51 06/27/18 23:05 Tylenol PO 650 mg Q4H PRN Administration Pain MILD(1-3)/Fever >100.5/LYLES Carvedilol 25 mg 06/27/18 22:00 06/28/18 10:03 Coreg PO 25 mg BID PINA Administration Clonidine HCl 0.1 mg 06/27/18 22:00 06/27/18 22:25 Catapres PO 0.1 mg QHS PINA Administration Epoetin Thiago 20,000 unit 06/27/18 12:41 Procrit SUB-Q RADHA PRN hemodialysis Ergocalciferol 50,000 unit 06/28/18 10:00 06/28/18 12:29 Vitamin D2 PO 50,000 unit Tu [facility] Administration Hydralazine HCl 100 mg 06/27/18 22:00 06/28/18 10:03 Apresoline PO 100 mg BID [facility] Administration Hydralazine HCl 10 mg 06/27/18 19:04 Apresoline IV Q4H PRN BP >160/100 Sodium Chloride 100 mls @ 999 mls/hr 06/27/18 12:41 Nacl 0.9% IV RADHA PRN Hypotension Heparin Sodium/Sodium Chloride 25,000 unit in 500 mls @ 15 mls/hr 06/27/18 16:00 06/28/18 12:29 Heparin/ 0.45% Nacl-25,000 Unit/500 Ml IV 750 units/hr TITR PINA 15 mls/hr Administration Protocol 750 UNITS/HR Azithromycin 500 mg/ Sodium 250 mls @ 250 mls/hr 06/28/18 17:30 Chloride IV Q24H [facility] Ceftriaxone Sodium 2 gm in 100 mls @ 200 mls/hr 06/28/18 17:00 Rocephin/Ns 2 Gm/100 Ml IV Q24H [facility] Protocol Vancomycin HCl 1 gm in 250 mls @ 125 mls/hr 06/28/18 18:30 Vancomycin/Ns 1 Gm/250 Ml IV 06/28/18 20:29 ONCE ONE Protocol Miscellaneous Medication 420 mg 06/27/18 12:00 Ferric Citrate PO TIDWM [facility] Nifedipine 60 mg 06/27/18 22:00 06/28/18 10:02 Procardia Xl PO 60 mg BID [facility] Administration Ondansetron HCl 4 mg 06/27/18 11:51 Zofran IV Q8H PRN Nausea And Vomiting Oxycodone/Acetaminophen 1 tab 06/27/18 11:21 06/28/18 10:10 Percocet 5/325 PO 1 tab Q6H PRN Administration Pain, Moderate (4-6) Sodium Chloride 10 ml 06/27/18 22:00 06/28/18 10:04 Sodium Chloride Flush Syringe 10 Ml IV 10 ml BID PINA Administration Sodium Chloride 10 ml 06/27/18 11:51 Sodium Chloride Flush Syringe 10 Ml IV PRN PRN LINE FLUSH
[2018-06-28] MEDS ORDERED: VANCOMYCIN/NS 1 GM/250 ML 1 GM/250 ML BAG IV ONE (18:30)
[2018-06-28] MEDS: ROCEPHIN/NS 2 GM/100 ML 2 GM/100 ML BAG IV SCH (20:20)
--- NOTE | 2018-06-28 21:43 | Vascular Lab Report ---
PROCEDURE: VL VENOUS DUPLEX LE BILAT TECHNIQUE: Routine Doppler compression imaging was obtained of the deep venous systems of both lower extremities. Augmentation maneuvers and waveforms were recorded. HISTORY: LE edema COMPARISONS: None FINDINGS: All other veins compress normally. The waveforms appear normal. IMPRESSION: Normal exam. No evidence of DVT in either lower extremity. This document is electronically signed by Mikey Sousa MD., June 28 2018 09:41:34 PM ET
[2018-06-28] MEDS: ZITHROMAX 500 MG in NACL 0.9% 250ML 250 ML IV SCH (22:00)
[2018-06-28] MEDS: CATAPRES PO SCH (23:42)
--- NOTE | 2018-06-28 23:59 | Cat Scan Report ---
PROCEDURE: CT CHEST WO CON TECHNIQUE: Computerized axial tomography of the chest was performed without contrast material. This study is performed without intravenous contrast and the sensitivity for pathology, including neoplasm s, adenopathy, abscess, pulmonary embolism and aortic dissection, is reduced. CT DOSE LENGTH PRODUCT: 328.1 mGycm HISTORY: presemed pneumonia eval for lung cavities COMPARISONS: None . FINDINGS: An irregular area of consolidation is noted involving the left lower lobe measuring 3.6 x 3.1 cm. The re is mild degree left pleural effusion with atelectasis of adjacent left lower lobe. Hilar structure s are within normal limits as visualized on this noncontrast study. Right lung demonstrates irregular patchy densities in the upper and lower lobes. Right pleural space is clear. Aorta is of normal serena harriet. There is mild degree cardiomegaly with coronary arterial calcification. Soft tissue density stru cture is noted in the anterior mediastinum most likely representing thymic tissue. Bone density is di ffusely increased consistent with renal osteodystrophy. Visualized bilateral kidneys are atrophied wi th multiple cysts and dystrophic calcifications. Vertebral height is normal. IMPRESSION: Findings are most consistent with a pneumonia involving bilateral lungs with mild degree left pleural effusion Cardiomegaly with coronary arterial calcification Atrophic kidneys consistent with ESRD Soft tissue density structure in the anterior mediastinum most likely represents thymus. This document is electronically signed by Jeffry Frias MD., June 28 2018 11:57:38 PM ET
[2018-06-29] MEDS: PERCOCET 5/325 PO PRN ×2 (05:42→12:31)
[2018-06-29 05:48] LABS: Hematocrit 27.5 % (30.3-42.9); Hemoglobin 9.2 gm/dl (10.1-14.3)
--- NOTE | 2018-06-29 09:30 | Progress Note ---
Assessment and Plan 1. ESRD: Patient is on home hemodialysis with Nxstage on MWFs. Continue HD three times a week. HD today. 3. Anemia: Epogen. 3. Pneumonia: Followed by ID. 4. R/o TB. 5. HTN. BP controlled. Subjective Date of service: 06/29/18 Interval history: Patient is doing ok. Objective - Vital Signs Vital signs: Vital Signs - 12hr 06/28/18 06/28/18 06/28/18 21:53 22:00 23:42 Temperature 99.1 F Pulse Rate 106 H 106 H Respiratory 28 H 24 Rate Respiratory 17 Rate [ Generalized] Blood Pressure 116/77 141/82 O2 Sat by Pulse 91 Oximetry 06/28/18 06/29/18 06/29/18 23:43 05:21 05:42 Temperature 99.7 F H Pulse Rate 106 H 102 H Respiratory 28 H 17 Rate Respiratory Rate [ Generalized] Blood Pressure 141/82 139/87 O2 Sat by Pulse 95 Oximetry 06/29/18 06:27 Temperature Pulse Rate Respiratory 18 Rate Respiratory Rate [ Generalized] Blood Pressure O2 Sat by Pulse Oximetry - General Appearance General appearance: well-developed, appears stated age, other (not in distress) EENT: ATNC, PERRL, mucous membranes moist, hearing intact, vision intact Neck: supple Respiratory: Present: Clear to Ascultation Cardiology: regular, S1S2, no murmurs Gastrointestinal: normoactive bowel sounds, no tenderness, no distended Integumentary: no rash, warm and dry Neurologic: no focal deficit, no asterixis, alert and oriented x3 Musculoskeletal: other (no edema, left arm AVG) - Lab 06/29/18 04:40 06/27/18 13:30 Most recent lab results Calcium 8.6 mg/dL (8.4-10.2) 06/27/18 13:30 Phosphorus 6.50 mg/dL (2.5-4.5) H 06/26/18 21:47 Medications & Allergies - Medications Allergies/Adverse Reactions: Allergies SUNDAR Inhibitors Allergy (Verified 10/08/13 03:34) Angioedema Home Medications: Home Medications Medication Instructions Recorded Confirmed Last Taken Type Carvedilol [Coreg] 25 mg PO BID 10/08/13 06/27/18 06/05/18 History NIFEdipine [NIFEdipine ER] 60 mg PO BID 07/09/1606/27/18 06/05/18 History Cholecalciferol (Vitamin D3) 50,000 unit PO QWEEK 06/06/18 06/27/18 Unknown History [Vitamin D3] Ferric Citrate (Nf) [Auryxia (Nf)] 420 mg PO TIDWM 06/06/18 06/27/18 06/05/18 History cloNIDine [Catapres] 0.1 mg PO QHS 06/06/18 06/27/18 Unknown History hydrALAZINE [Apresoline TAB] 100 mg PO BID 06/06/18 06/27/18 06/05/18 History Active Medications: Generic Name Dose Route Start Last Admin Trade Name Freq PRN Reason Stop Dose Admin Acetaminophen 650 mg 06/27/18 11:51 06/27/18 23:05 Tylenol PO 650 mg Q4H PRN Administration Pain MILD(1-3)/Fever >100.5/LYLES Carvedilol 25 mg 06/27/18 22:00 06/28/18 23:43 Coreg PO 25 mg BID PINA Administration Clonidine HCl 0.1 mg 06/27/18 22:00 06/28/18 23:42 Catapres PO 0.1 mg QHS [facility] Administration Epoetin Thiago 20,000 unit 06/27/18 12:41 Procrit SUB-Q RADHA PRN hemodialysis Ergocalciferol 50,000 unit 06/28/18 10:00 06/28/18 12:29 Vitamin D2 PO 50,000 unit Tu [facility] Administration Hydralazine HCl 100 mg 06/27/18 22:00 06/28/18 23:43 Apresoline PO Not Given BID [facility] Hydralazine HCl 10 mg 06/27/18 19:04 Apresoline IV Q4H PRN BP >160/100 Sodium Chloride 100 mls @ 999 mls/hr 06/27/18 12:41 Nacl 0.9% IV RADHA PRN Hypotension Heparin Sodium/Sodium Chloride 25,000 unit in 500 mls @ 15 mls/hr 06/27/18 16:00 06/29/18 06:30 Heparin/ 0.45% Nacl-25,000 Unit/500 Ml IV 950 units/hr TITR P[facility] 19 mls/hr Titration Protocol 750 UNITS/HR Azithromycin 500 mg/ Sodium 250 mls @ 250 mls/hr 06/28/18 17:30 06/28/18 22:00 Chloride IV 250 mls/hr Q24H [facility] Administration Ceftriaxone Sodium 2 gm in 100 mls @ 200 mls/hr 06/28/18 17:00 06/28/18 20:20 Rocephin/Ns 2 Gm/100 Ml IV Not Given Q24H [facility] Protocol Miscellaneous Medication 420 mg 06/27/18 12:00 Ferric Citrate PO TIDWM [facility] Nifedipine 60 mg 06/27/18 22:00 06/28/18 23:44 Procardia Xl PO Not Given BID [facility] Ondansetron HCl 4 mg 06/27/18 11:51 Zofran IV Q8H PRN Nausea And Vomiting Oxycodone/Acetaminophen 1 tab 06/27/18 11:21 06/29/18 05:42 Percocet 5/325 PO 1 tab Q6H PRN Administration Pain, Moderate (4-6) Sodium Chloride 10 ml 06/27/18 22:00 06/28/18 23:44 Sodium Chloride Flush Syringe 10 Ml IV 10 ml BID [facility] Administration Sodium Chloride 10 ml 06/27/18 11:51 Sodium Chloride Flush Syringe 10 Ml IV PRN PRN LINE FLUSH
--- NOTE | 2018-06-29 09:34 | Progress Note ---
Assessment and Plan Assessment and Plan Cultures: Blood culture 06/26/2018 CoNs Bacteremia, 2 out of 4 bottles Blood cuture 06/28/2018 In progress Assessment: 32 y/o female with history ESRD on home HD via left AVG, she is on HD since 1996 s/p failed kidney transplant (between 2002 and 2005); admitted on 06/26/2018 due to 2-day history of cough with clear sputum and severe sharp left chest pain: 1) Sepsis: Not Present on admission, continuing on and off fevers and tachycardia, no leukocytosis. Etiology most likely CoNS bacteremia, +/- pneumonia. UA not obtained she does not make urine. 2) Left Cavitating Pneumonia: patient had a "bad cold" with runny nose, chest congestion 2 weeks before admission treated with Augmetin and prednisone for 10 days. She reports multiple sick contacts recently. Recently came from [place] in Mar 2018 for 2 months. Denies TB exposures. DDX CAP, TB. CXR mild hilar infiltrates bilateral. VQ scan low probability for PE. Chest CT: findings consistent with pneumonia involving bilateral lungs, m ild degree of left pleural effusion Chest CTA: There is complete atelectasis of the left lower lobe. focal rounded airspace opacity measuring up to 4 cm in the posterior lingula which is concerning for an infiltrate. Small left pleural effusion and trace right pleural effusion. 3) CoNS Bacteremia: real v/s contaminant ? source unclear AVG. TTE shows no valvular vegetation. - Blood culture 06/26/2018 GPC in clusters 2 of 4 bottles, follow up ID and CLIFF's. 4) Anemia 5) ESRD on HD: via left AVG. Antibiotics renally dosed. Nephrology following. Recommendations: - continue airborn isolation until TB is r/o - f/u quatiferon TB gold - follow-up blood cultures for ID and CLIFF's - f/u repeat blood cultures today - f/u induced respiratory cultures (conversation with RT lead) - f/u C-reactive protein (CRP) - f/u influenza rapid antigen and PCR in nasopharinx - f/u Legionella urine antigen, Streptococcus pneumoniae urine antigen, Mycoplasma serology, Chlamydia pneumophila serology - continue vancomycin renally adjusted , D2 - continue azithromycin and ceftriaxone, D2 -Pulmonary consult for left Cavitating Pnuemonia [facility] M: [id number] O:[phone] Subjective Date of service: 06/29/18 Interval history: Patient seen and examined. Increased agitation. Nurses notes, labs , imaging and reports discussed extensively, questions answered. Objective - Exam Narrative Exam: General appearance: Alert in NAD, agitated. No acute distress Eyes: anicteric sclerae, moist conjunctivae; no lid-lag; PERRLA HENT: Atraumatic; oropharynx clear with moist mucous membranes and no mucosal ulcerations/no oral thrush; normal hard and soft palate. Normal external ears. Neck: Trachea midline; supple, no thyromegaly or lymphadenopathy Lungs: sayra crackles CV: RRR Abdomen: Soft, non-tender; no masses or hepatosplenomegaly Extremities: No peripheral edema or extremity lymphadenopathy. Left AVG Skin: Normal temperature, turgor and texture; no rash, ulcers or subcutaneous nodules Psych: Agitated. Neuro: alert and oriented x 3. Moving all extermities - Constitutional Vitals: Vital Signs Temp Pulse Resp BP Pulse Ox 99.7 F H 102 H 18 139/87 95 06/29/18 05:21 06/29/18 05:21 06/29/18 06:27 06/29/18 05:21 06/29/18 05:21 Temperature -Last 24 Hours Temperature 99.7 F Temperature 99.1 F Temperature 100.5 F Temperature 98.3 F - Labs CBC & Chem 7: 06/29/18 04:40 06/27/18 13:30 Labs: Abnormal lab results 06/28/18 06/29/18 06/29/18 Range/Units 19:27 04:40 04:40 Hgb 9.2 L (10.1-14.3) gm/dl Hct 27.5 L (30.3-42.9) % Heparin Anti-Xa Level < 0.10 L 0.10 L (0.3-0.7) U.I./ml
--- NOTE | 2018-06-29 11:25 | Cat Scan Report ---
CTA CHEST: HISTORY: chest pain. COMPARISON: CT chest without contrast dated 06/28/18. TECHNIQUE: Helical CT in 1.25mm intervals following IV contrast. Pulmonary embolus protocol. Sagittal and coronal reformatted images. Rotational MIP images. FINDINGS: Contrast bolus is satisfactory. No pulmonary embolus is identified. Thyroid gland: Normal. Tracheobronchial tree: Normal. Esophagus: Normal. Heart: Mild cardiomegaly. Pericardium: Trace pericardial fluid. Mediastinum: No evidence for suspicious mediastinal mass or adenopathy. Residual thymic tissue is suspected. No pulmonary embolus is identified, however, the main pulmonary artery appears markedly dilated measuring up to 4.5 cm in diameter. This could represent pulmonary hypertension. Lung [place]: There is complete atelectasis of the left lower lobe. Again, there is a focal rounded airspace opacity measuring up to 4 cm in the posterior lingula which is concerning for an infiltrate. Minor subpleural atelectatic changes are noted at the right lung base. The remainder of the lungs are well-aerated. Pleural Spaces: Small layering left pleural effusion. Trace right pleural effusion. Musculoskeletal: The bony structures are diffusely sclerotic consistent with renal osteodystrophy. Atrophic kidneys are partially imaged in the upper abdomen. IMPRESSION: No evidence for pulmonary embolus. Mild cardiomegaly and a small left pleural effusion and trace right pleural effusion. Dilated pulmonary trunk which could represent pulmonary hypertension. Complete atelectasis of the left lower lobe. 4 cm air space opacity in the posterior lingula concerning for pneumonia. Please correlate with the patient.
[2018-06-29] MEDS: SODIUM CHLORIDE FLUSH SYRINGE 10 ML IV SCH ×2 (12:00→23:58)
--- NOTE | 2018-06-29 17:46 | Progress Note ---
Assessment and Plan Assessment and plan: 32F who presents with pleuritic left chest pain Diagnosis ESRD- anuric htn PNA, sepsis Bacteremia r/o TB Plan HD per nephrology resume home meds VQ scan and CT angiogram negative for PE but CT scan does confirm pneumonia and suspicious lesion which may be due to TB -Respiratory isolation, antibiotics per ID, fup sputum AFB -DVT prophylaxis with heparin History Interval history: Patient has had fever, continues to have left-sided chest pain, having occasional dry cough. Denies vomiting, denies focal weakness, denies seizures Hospitalist Physical - Physical exam Narrative exam: General.: Appears well, no distress, nontoxic HEENT: Moist mucous membranes, extraocular muscles intact, no lymphadenopathy Neck: supple Cardiac: S1-S2 heard Lungs: Crackles on left upper lobe Abdomen: soft , nontender, nondistended, bowel sounds positive Extremities: no edema clubbing or cyanosis Skin: no rash or lesions Neurologic: no gross focal deficits Psych: calm, and cooperative - Constitutional Vitals: Temp Pulse Resp BP Pulse Ox 98.4 F 108 H 18 178/109 90 06/29/18 11:45 06/29/18 11:45 06/29/18 13:31 06/29/18 17:33 06/29/18 11:45 General appearance: Present: no acute distress, well-nourished Results - Labs CBC & Chem 7: 06/29/18 04:40 06/27/18 13:30 Labs: Laboratory Last Values WBC 10.7 K/mm3 (4.5-11.0) 06/26/18 21:47 RBC 2.49 M/mm3 (3.65-5.03) L 06/26/18 21:47 Hgb 9.2 gm/dl (10.1-14.3) L 06/29/18 04:40 Hct 27.5 % (30.3-42.9) L 06/29/18 04:40 MCV 94 fl (79-97) 06/26/18 21:47 MCH 32 pg (28-32) 06/26/18 21:47 MCHC 34 % (30-34) 06/26/18 21:47 RDW 23.3 % (13.2-15.2) H 06/26/18 21:47 Plt Count 167 K/mm3 (140-440) 06/29/18 04:40 PT 15.1 Sec. (12.2-14.9) H 06/27/18 16:23 INR 1.12 (0.87-1.13) 06/27/18 16:23 APTT 38.4 Sec. (24.2-36.6) H 06/27/18 16:23 Heparin Anti-Xa Level 0.10 U.I./ml (0.3-0.7) L 06/29/18 04:40 Sodium 131 mmol/L (137-145) L 06/27/18 13:30 Potassium 4.8 mmol/L (3.6-5.0) 06/27/18 13:30 Chloride 88.7 mmol/L (98-107) L 06/27/18 13:30 Carbon Dioxide 19 mmol/L (22-30) L 06/27/18 13:30 Anion Gap 28 mmol/L 06/27/18 13:30 BUN 81 mg/dL (7-17) H 06/27/18 13:30 Creatinine 11.3 mg/dL (0.7-1.2) H 06/27/18 13:30 Estimated GFR 5 ml/min 06/27/18 13:30 BUN/Creatinine Ratio 7 % 06/27/18 13:30 Glucose 82 mg/dL (65-100) 06/27/18 13:30 Lactic Acid 0.80 mmol/L (0.7-2.0) 06/27/18 09:44 Calcium 8.6 mg/dL (8.4-10.2) 06/27/18 13:30 Phosphorus 6.50 mg/dL (2.5-4.5) H 06/26/18 21:47 Total Bilirubin 0.30 mg/dL (0.1-1.2) 06/26/18 21:47 AST 9 units/L (5-40) 06/26/18 21:47 ALT < 5 units/L (7-56) L 06/26/18 21:47 Alkaline Phosphatase 126 units/L (35-129) 06/26/18 21:47 Troponin T 0.017 ng/mL (0.00-0.029) 06/27/18 09:44 Total Protein 7.5 g/dL (6.3-8.2) 06/26/18 21:47 Albumin 3.6 g/dL (3.9-5) L 06/26/18 21:47 Albumin/Globulin Ratio 0.9 % 06/26/18 21:47 Active Medications - Current Medications Current Medications: Generic Name Dose Route Start Last Admin Trade Name Freq PRN Reason Stop Dose Admin Acetaminophen 650 mg 06/27/18 11:51 06/27/18 23:05 Tylenol PO 650 mg Q4H PRN Administration Pain MILD(1-3)/Fever >100.5/LYLES Carvedilol 25 mg 06/27/18 22:00 06/28/18 23:43 Coreg PO 25 mg BID PINA Administration Clonidine HCl 0.1 mg 06/27/18 22:00 06/28/18 23:42 Catapres PO 0.1 mg QHS PINA Administration Epoetin Thiago 20,000 unit 06/27/18 12:41 Procrit SUB-Q RADHA PRN hemodialysis Ergocalciferol 50,000 unit 06/28/18 10:00 06/28/18 12:29 Vitamin D2 PO 50,000 unit Tu PIAN Administration Heparin Sodium (Porcine) 5,000 unit 06/29/18 22:00 Heparin SUB-Q Q8HR [facility] Hydralazine HCl 100 mg 06/27/18 22:00 06/28/18 23:43 Apresoline PO Not Given BID [facility] Hydralazine HCl 10 mg 06/27/18 19:04 06/29/18 17:33 Apresoline IV 10 mg Q4H PRN Administration BP >160/100 Sodium Chloride 100 mls @ 999 mls/hr 06/27/18 12:41 Nacl 0.9% IV RADHA PRN Hypotension Azithromycin 500 mg/ Sodium 250 mls @ 250 mls/hr 06/28/18 17:30 06/28/18 22:00 Chloride IV 250 mls/hr Q24H [facility] Administration Ceftriaxone Sodium 2 gm in 100 mls @ 200 mls/hr 06/28/18 17:00 06/28/18 20:20 Rocephin/Ns 2 Gm/100 Ml IV Not Given Q24H [facility] Protocol Miscellaneous Medication 420 mg 06/27/18 12:00 Ferric Citrate PO TIDWM [facility] Nifedipine 60 mg 06/27/18 22:00 06/28/18 23:44 Procardia Xl PO Not Given BID [facility] Ondansetron HCl 4 mg 06/27/18 11:51 Zofran IV Q8H PRN Nausea And Vomiting Oxycodone/Acetaminophen 1 tab 06/27/18 11:21 06/29/18 12:31 Percocet 5/325 PO 1 tab Q6H PRN Administration Pain, Moderate (4-6) Sodium Chloride 10 ml 06/27/18 22:00 06/29/18 12:00 Sodium Chloride Flush Syringe 10 Ml IV 10 ml BID PINA Administration Sodium Chloride 10 ml 06/27/18 11:51 Sodium Chloride Flush Syringe 10 Ml IV PRN PRN LINE FLUSH
[2018-06-29] MEDS: HEPARIN SUB-Q SCH (23:55)
[2018-06-29] MEDS: COREG PO SCH (23:56)
[2018-06-29] MEDS: APRESOLINE PO SCH (23:56)
[2018-06-29] MEDS: PROCARDIA XL PO SCH (23:56)
[2018-06-29] MEDS: CATAPRES PO SCH (23:56)
[2018-06-30] MEDS: PERCOCET 5/325 PO PRN ×2 (00:16→14:00)
[2018-06-30 00:22] LABS: Basophils # (Auto) 0.1 K/mm3 (0.0-0.1); Basophils % (Auto) 0.5 % (0.0-1.8); Eosinophils # (Auto) 0.1 K/mm3 (0.0-0.4); Eosinophils % (Auto) 0.7 % (0.0-4.3); Hematocrit 28.5 % (30.3-42.9); Hemoglobin 9.4 gm/dl (10.1-14.3); Lymphocytes # (Auto) 0.7 K/mm3 (1.2-5.4); Lymphocytes % (Auto) 7.3 % (13.4-35.0); Mean Corpuscular HGB Conc 33 % (30-34); Mean Corpuscular Volume 93 fl (79-97); Monocytes # (Auto) 0.6 K/mm3 (0.0-0.8); Platelet Count 205 K/mm3 (140-440); Red Blood Count 3.05 M/mm3 (3.65-5.03)
[2018-06-30] MEDS: HEPARIN SUB-Q SCH ×3 (05:56→23:02)
--- NOTE | 2018-06-30 09:54 | Progress Note ---
Assessment and Plan Assessment and Plan Cultures: Blood culture 06/26/2018 Staph Epidermidis, 2 out of 4 bottles Blood culture 06/28/2018 no growth to date Assessment: 32 y/o female with history ESRD on home HD via left AVG, she is on HD since 1996 s/p failed kidney transplant (between 2002 and 2005); admitted on 06/26/2018 due to 2-day history of cough with clear sputum and severe sharp left chest pain: 1) Sepsis: Not Present on admission, no fevers in >24 hours. Etiology most likely CoNS bacteremia, +/- pneumonia. UA not obtained she does not make urine. CRP 38.70 2) Left Cavitating Pneumonia: high risk for pulmonary TB as she recently traveled to [facility] in Mar 2018 for 2 months.and was on immunosuppressants for renal transplant. Patient had a "bad cold" with runny nose, chest congestion 2 weeks before admission treated with Augmetin and prednisone for 10 days. She reports multiple sick contacts recently. . DDX TB, CAP, bilateral. VQ scan low probability for PE. Chest CT: findings consistent with pneumonia involving bilateral lungs, mild degree of left pleural effusion Chest CTA: There is complete atelectasis of the left lower lobe. focal rounded airspace opacity measuring up to 4 cm in the posterior lingula which is concerning for an infiltrate. Small left pleural effusion and trace right pleur al effusion. 3) Staph Epidermidis Bacteremia: likely contaminant, source unclear AVG. TTE shows no valvular vegetation. - Blood culture 06/26/2018 GPC in clusters 2 of 4 bottles, follow up ID and CLIFF's. 4) Anemia 5) ESRD on HD: via left AVG. Antibiotics renally dosed. Nephrology following. Recommendations: - continue airborn isolation until TB is r/o - f/u quatiferon TB gold - follow-up blood cultures for ID and CLIFF's - f/u induced respiratory cultures (conversation with RT lead), if unable to obtain will order bronch/BAL. - f/u influenza rapid antigen and PCR in nasopharinx - f/u Legionella urine antigen, Streptococcus pneumoniae urine antigen, Mycoplasma serology, Chlamydia pneumophila serology - continue vancomycin renally adjusted , D3 - continue azithromycin and ceftriaxone, D3 -f/u Pulmonary consult for left Cavitating Pnuemonia -Anticipate discharge on Vancomycin 1gm IV every 48 hours post HD until 07-12-18 [facility] M: [id number] O:[phone] Subjective Date of service: 06/30/18 Interval history: Patient seen and examined. Calm, mostly non conversant. Reports left flank pain when taking deep breaths. No fevers. Objective - Exam Narrative Exam: General appearance: Alert in NAD, calm, non conversant. No acute distress Eyes: anicteric sclerae, moist conjunctivae; no lid-lag; PERRLA HENT: Atraumatic; oropharynx clear with moist mucous membranes and no mucosal ulcerations/no oral thrush; normal hard and soft palate. Normal external ears. Neck: Trachea midline; supple, no thyromegaly or lymphadenopathy Lungs: sayra crackles CV: RRR Abdomen: Soft, non-tender; no masses or hepatosplenomegaly Extremities: No peripheral edema or extremity lymphadenopathy. Left AVG Skin: Normal temperature, turgor and texture; no rash, ulcers or subcutaneous nodules Psych: flat affect Neuro: alert and oriented x 3. Moving all extermities - Constitutional Vitals: Vital Signs Temp Pulse Resp BP Pulse Ox 98.3 F 103 H 18 121/68 100 06/30/18 05:10 06/30/18 05:10 06/30/18 05:10 06/30/18 05:10 06/30/18 05:10 Temperature -Last 24 Hours Temperature 98.3 F Temperature 99.0 F Temperature 99.4 F Temperature 99.4 F Temperature 98.4 F - Labs CBC & Chem 7: 06/29/18 23:45 06/27/18 13:30 Labs: Abnormal lab results 06/27/18 06/29/18 06/29/18 Range/Units 09:44 00:00 23:45 RBC 3.05 L (3.65-5.03) M/mm3 Hgb 9.4 L (10.1-14.3) gm/dl Hct 28.5 L (30.3-42.9) % RDW 23.0 H (13.2-15.2) % Lymph % (Auto) 7.3 L (13.4-35.0) % Lymph # 0.7 L (1.2-5.4) K/mm3 Seg Neutrophils % 85.5 H (40.0-70.0) % Seg Neutrophils # 8.6 H (1.8-7.7) K/mm3 Sodium 132 L (137-145) mmol/L Chloride 87.0 L (98-107) mmol/L Carbon Dioxide 19 L (22-30) mmol/L BUN 77 H (7-17) mg/dL Creatinine 11.0 H (0.7-1.2) mg/dL C-Reactive Protein 38.70 H (0.00-1.30) mg/dL
--- NOTE | 2018-06-30 10:30 | Progress Note ---
Assessment and Plan Assessment and plan: 32F who presents with pleuritic left chest pain Diagnosis ESRD- anuric htn PNA, sepsis Bacteremia r/o TB Plan HD per nephrology resume home meds VQ scan and CT angiogram negative for PE but CT scan does confirm pneumonia and suspicious lesion which may be due to TB -Respiratory isolation, antibiotics per ID, fup sputum AFB -DVT prophylaxis with heparin History Interval history: fever resolved, Left CP is better, still having dry cough Denies vomiting, denies focal weakness, denies seizures Hospitalist Physical - Physical exam Narrative exam: General.: Appears well, no distress, nontoxic HEENT: Moist mucous membranes, extraocular muscles intact, no lymphadenopathy Neck: supple Cardiac: S1-S2 heard Lungs: Crackles on left upper lobe Abdomen: soft , nontender, nondistended, bowel sounds positive Extremities: no edema clubbing or cyanosis Skin: no rash or lesions Neurologic: no gross focal deficits Psych: calm, and cooperative - Constitutional Vitals: Temp Pulse Resp BP Pulse Ox 98.3 F 103 H 18 121/68 100 06/30/18 05:10 06/30/18 05:10 06/30/18 05:10 06/30/18 05:10 06/30/18 05:10 General appearance: Present: no acute distress, well-nourished Results - Labs CBC & Chem 7: 06/29/18 23:45 06/27/18 13:30 Labs: Laboratory Last Values WBC 10.1 K/mm3 (4.5-11.0) 06/29/18 23:45 RBC 3.05 M/mm3 (3.65-5.03) L 06/29/18 23:45 Hgb 9.4 gm/dl (10.1-14.3) L 06/29/18 23:45 Hct 28.5 % (30.3-42.9) L 06/29/18 23:45 MCV 93 fl (79-97) 06/29/18 23:45 MCH 31 pg (28-32) 06/29/18 23:45 MCHC 33 % (30-34) 06/29/18 23:45 RDW 23.0 % (13.2-15.2) H 06/29/18 23:45 Plt Count 205 K/mm3 (140-440) 06/29/18 23:45 Lymph % (Auto) 7.3 % (13.4-35.0) L 06/29/18 23:45 [place] % (Auto) 6.0 % (0.0-7.3) 06/29/18 23:45 Eos % (Auto) 0.7 % (0.0-4.3) 06/29/18 23:45 Baso % (Auto) 0.5 % (0.0-1.8) 06/29/18 23:45 Lymph # 0.7 K/mm3 (1.2-5.4) L 06/29/18 23:45 [place] # 0.6 K/mm3 (0.0-0.8) 06/29/18 23:45 Eos # 0.1 K/mm3 (0.0-0.4) 06/29/18 23:45 Baso # 0.1 K/mm3 (0.0-0.1) 06/29/18 23:45 Seg Neutrophils % 85.5 % (40.0-70.0) H 06/29/18 23:45 Seg Neutrophils # 8.6 K/mm3 (1.8-7.7) H 06/29/18 23:45 PT 15.1 Sec. (12.2-14.9) H 06/27/18 16:23 INR 1.12 (0.87-1.13) 06/27/18 16:23 APTT 38.4 Sec. (24.2-36.6) H 06/27/18 16:23 Heparin Anti-Xa Level 0.10 U.I./ml (0.3-0.7) L 06/29/18 04:40 Sodium 131 mmol/L (137-145) L 06/27/18 13:30 Potassium 4.8 mmol/L (3.6-5.0) 06/27/18 13:30 Chloride 88.7 mmol/L (98-107) L 06/27/18 13:30 Carbon Dioxide 19 mmol/L (22-30) L 06/27/18 13:30 Anion Gap 28 mmol/L 06/27/18 13:30 BUN 81 mg/dL (7-17) H 06/27/18 13:30 Creatinine 11.3 mg/dL (0.7-1.2) H 06/27/18 13:30 Estimated GFR 5 ml/min 06/27/18 13:30 BUN/Creatinine Ratio 7 % 06/27/18 13:30 Glucose 82 mg/dL (65-100) 06/27/18 13:30 Lactic Acid 0.80 mmol/L (0.7-2.0) 06/27/18 09:44 Calcium 8.6 mg/dL (8.4-10.2) 06/27/18 13:30 Phosphorus 6.50 mg/dL (2.5-4.5) H 06/26/18 21:47 Total Bilirubin 0.30 mg/dL (0.1-1.2) 06/26/18 21:47 AST 9 units/L (5-40) 06/26/18 21:47 ALT < 5 units/L (7-56) L 06/26/18 21:47 Alkaline Phosphatase 126 units/L (35-129) 06/26/18 21:47 Troponin T 0.017 ng/mL (0.00-0.029) 06/27/18 09:44 C-Reactive Protein 38.70 mg/dL (0.00-1.30) H 06/29/18 00:00 Total Protein 7.5 g/dL (6.3-8.2) 06/26/18 21:47 Albumin 3.6 g/dL (3.9-5) L 06/26/18 21:47 Albumin/Globulin Ratio 0.9 % 06/26/18 21:47 Random Vancomycin 14.1 ug/mL (0-40.0) 06/30/18 06:17 Active Medications - Current Medications Current Medications: Generic Name Dose Route Start Last Admin Trade Name Freq PRN Reason Stop Dose Admin Acetaminophen 650 mg 06/27/18 11:51 06/27/18 23:05 Tylenol PO 650 mg Q4H PRN Administration Pain MILD(1-3)/Fever >100.5/LYLES Carvedilol 25 mg 06/27/18 22:00 06/29/18 23:56 Coreg PO 25 mg BID PINA Administration Clonidine HCl 0.1 mg 06/27/18 22:00 06/29/18 23:56 Catapres PO 0.1 mg QHS PINA Administration Epoetin Thiago 20,000 unit 06/27/18 12:41 Procrit SUB-Q RADHA PRN hemodialysis Ergocalciferol 50,000 unit 06/28/18 10:00 06/28/18 12:29 Vitamin D2 PO 50,000 unit Tu [facility] Administration Heparin Sodium (Porcine) 5,000 unit 06/29/18 22:00 06/30/18 05:56 Heparin SUB-Q Not Given Q8HR [facility] Hydralazine HCl 100 mg 06/27/18 22:00 06/29/18 23:56 Apresoline PO 100 mg BID PINA Administration Hydralazine HCl 10 mg 06/27/18 19:04 06/29/18 17:33 Apresoline IV 10 mg Q4H PRN Administration BP >160/100 Sodium Chloride 100 mls @ 999 mls/hr 06/27/18 12:41 Nacl 0.9% IV RADHA PRN Hypotension Azithromycin 500 mg/ Sodium 250 mls @ 250 mls/hr 06/28/18 17:30 06/28/18 22:00 Chloride IV 250 mls/hr Q24H [facility] Administration Ceftriaxone Sodium 2 gm in 100 mls @ 200 mls/hr 06/28/18 17:00 06/28/18 20:20 Rocephin/Ns 2 Gm/100 Ml IV Not Given Q24H [facility] Protocol Miscellaneous Medication 420 mg 06/27/18 12:00 Ferric Citrate PO TIDWM [facility] Nifedipine 60 mg 06/27/18 22:00 06/29/18 23:56 Procardia Xl PO 60 mg BID PINA Administration Ondansetron HCl 4 mg 06/27/18 11:51 Zofran IV Q8H PRN Nausea And Vomiting Oxycodone/Acetaminophen 1 tab 06/27/18 11:21 06/30/18 00:16 Percocet 5/325 PO 1 tab Q6H PRN Administration Pain, Moderate (4-6) Sodium Chloride 10 ml 06/27/18 22:00 06/29/18 23:58 Sodium Chloride Flush Syringe 10 Ml IV 10 ml BID PINA Administration Sodium Chloride 10 ml 06/27/18 11:51 Sodium Chloride Flush Syringe 10 Ml IV PRN PRN LINE FLUSH
[2018-06-30] MEDS: ZITHROMAX 500 MG in NACL 0.9% 250ML 250 ML IV SCH (10:45)
[2018-06-30] MEDS: APRESOLINE PO SCH ×3 (10:47→22:52)
[2018-06-30] MEDS: COREG PO SCH ×2 (10:47→22:51)
[2018-06-30] MEDS: PROCARDIA XL PO SCH ×2 (10:47→22:56)
[2018-06-30] MEDS: SODIUM CHLORIDE FLUSH SYRINGE 10 ML IV SCH ×2 (10:48→23:04)
--- NOTE | 2018-06-30 15:00 | Progress Note ---
Assessment and Plan 1. ESRD: Patient is on home hemodialysis with Nxstage on MWFs. Continue HD three times a week. Next HD tomorrow. 3. Anemia: Epogen. 3. Pneumonia: Followed by ID. 4. R/o TB: On TB isolation. 5. HTN. BP controlled. Subjective Date of service: 06/30/18 Interval history: Patient is doing ok. Objective - Vital Signs Vital signs: Vital Signs - 12hr 06/30/18 06/30/18 06/30/18 05:10 10:47 14:04 Temperature 98.3 F 98.6 F Pulse Rate 103 H 107 H 102 H Respiratory 18 22 Rate Blood Pressure 121/68 135/83 Blood Pressure 122/78 [Right] O2 Sat by Pulse 100 95 Oximetry - General Appearance General appearance: well-developed, well-nourished, appears stated age, other (RN present at the bedside, not in distress) EENT: ATNC, PERRL, mucous membranes moist, hearing intact, vision intact Neck: supple Respiratory: Present: Clear to Ascultation Cardiology: regular, S1S2, no murmurs Gastrointestinal: normoactive bowel sounds, no tenderness, no distended Integumentary: no rash Neurologic: no focal deficit, no asterixis, alert and oriented x3 Musculoskeletal: other (no edema, left arm AVG) - Lab 06/29/18 23:45 06/27/18 13:30 Most recent lab results Calcium 8.6 mg/dL (8.4-10.2) 06/27/18 13:30 Phosphorus 6.50 mg/dL (2.5-4.5) H 06/26/18 21:47 Medications & Allergies - Medications Allergies/Adverse Reactions: Allergies SUNDAR Inhibitors Allergy (Verified 10/08/13 03:34) Angioedema Home Medications: Home Medications Medication Instructions Recorded Confirmed Last Taken Type Carvedilol [Coreg] 25 mg PO BID 10/08/13 06/27/18 06/05/18 History NIFEdipine [NIFEdipine ER] 60 mg PO BID 10/08/13 06/27/18 06/05/18 History Cholecalciferol (Vitamin D3) 50,000 unit PO QWEEK 06/06/18 06/27/18 Unknown History [Vitamin D3] Ferric Citrate (Nf) [Auryxia (Nf)] 420 mg PO TIDWM 06/06/18 06/27/18 06/05/18 History cloNIDine [Catapres] 0.1 mg PO QHS 06/06/18 06/27/18 Unknown History hydrALAZINE [Apresoline TAB] 100 mg PO BID 06/06/18 06/27/18 06/05/18 History Active Medications: Generic Name Dose Route Start Last Admin Trade Name Freq PRN Reason Stop Dose Admin Acetaminophen 650 mg 06/27/18 11:51 06/27/18 23:05 Tylenol PO 650 mg Q4H PRN Administration Pain MILD(1-3)/Fever >100.5/LYLES Carvedilol 25 mg 06/27/18 22:00 06/30/18 10:47 Coreg PO 25 mg BID PINA Administration Clonidine HCl 0.1 mg 06/27/18 22:00 06/29/18 23:56 Catapres PO 0.1 mg QHS PINA Administration Epoetin Thiago 20,000 unit 06/27/18 12:41 Procrit SUB-Q RADHA PRN hemodialysis Ergocalciferol 50,000 unit 06/28/18 10:00 06/28/18 12:29 Vitamin D2 PO 50,000 unit Tu PINA Administration Heparin Sodium (Porcine) 5,000 unit 06/29/18 22:00 06/30/18 14:04 Heparin SUB-Q Not Given Q8HR [facility] Hydralazine HCl 100 mg 06/27/18 22:00 06/30/18 10:47 Apresoline PO 100 mg BID PINA Administration Hydralazine HCl 10 mg 06/27/18 19:04 06/29/18 17:33 Apresoline IV 10 mg Q4H PRN Administration BP >160/100 Sodium Chloride 100 mls @ 999 mls/hr 06/27/18 12:41 Nacl 0.9% IV RADHA PRN Hypotension Azithromycin 500 mg/ Sodium 250 mls @ 250 mls/hr 06/28/18 17:30 06/30/18 10:45 Chloride IV 250 mls/hr Q24H [facility] Administration Ceftriaxone Sodium 2 gm in 100 mls @ 200 mls/hr 06/28/18 17:00 06/28/18 20:20 Rocephin/Ns 2 Gm/100 Ml IV Not Given Q24H [facility] Protocol Miscellaneous Medication 420 mg 06/27/18 12:00 Ferric Citrate PO TIDWM [facility] Nifedipine 60 mg 06/27/18 22:00 06/30/18 10:47 Procardia Xl PO 60 mg BID PINA Administration Ondansetron HCl 4 mg 06/27/18 11:51 Zofran IV Q8H PRN Nausea And Vomiting Oxycodone/Acetaminophen 1 tab 06/27/18 11:21 06/30/18 14:00 Percocet 5/325 PO 1 tab Q6H PRN Administration Pain, Moderate (4-6) Sodium Chloride 10 ml 06/27/18 22:00 06/30/18 10:48 Sodium Chloride Flush Syringe 10 Ml IV 10 ml BID PINA Administration Sodium Chloride 10 ml 06/27/18 11:51 Sodium Chloride Flush Syringe 10 Ml IV PRN PRN LINE FLUSH
--- NOTE | 2018-06-30 15:07 | Event Note ---
Date: 06/30/18 Full consult to follow. Consulted for bronchoscopy. Not able to perform today or tomorrow secondary to availability in GI lab. Called lab and Wed and are also booked so likely the earliest this could happen if needed would be next Wednesday. Would ask RT to induce sputum if possible.
[2018-06-30] MEDS: ROCEPHIN/NS 2 GM/100 ML 2 GM/100 ML BAG IV SCH (19:06)
[2018-06-30] MEDS ORDERED: TESSALON PERLES PO PRN (21:40)
[2018-06-30] MEDS: CATAPRES PO SCH (22:51)
[2018-06-30] MEDS: TYLENOL PO PRN (23:00)
[2018-07-01] MEDS: HEPARIN SUB-Q SCH ×3 (05:27→19:11)
--- NOTE | 2018-07-01 08:30 | Progress Note ---
Assessment and Plan Assessment and Plan Cultures: Blood culture 06/26/2018 MRSE, 2 out of 4 bottles Blood culture 06/28/2018 no growth to date Parasite smear 06/28/2018: negative Assessment: 32 y/o female with history ESRD on home HD via left AVG, she is on HD since 1996 s/p failed kidney transplant (between 2002 and 2005); admitted on 06/26/2018 due to 2-day history of cough with clear sputum and severe sharp left chest pain: 1) Sepsis: Not Present on admission. On and off low grade fevers. Etiology most likely Staph Epidermidis Bacteremia, +/- pneumonia. UA not obtained she does not make urine. CRP 38.70 2) Left Cavitating Pneumonia: high risk for pulmonary TB as she recently traveled to [facility] in Mar 2018 for 2 months.and was on immunosuppressants for renal transplant. Patient had a "bad cold" with runny nose, chest congestion 2 weeks before admission treated with Augmetin and prednisone for 10 days. She reports multiple sick contacts recently. . DDX TB, CAP, bilateral. VQ scan low probability for PE. Chest CT: findings consistent with pneumonia involving bilateral lungs, mild degree of left pleural effusion Chest CTA: There is complete atelectasis of the left lower lobe. focal rounded airspace opacity measuring up to 4 cm in the posterior lingula which is concerning for an infiltrate. Small left pleural effusion and trace right pleural effusion. 3) MRSE Bacteremia: likely contaminant, source unclear AVG. TTE shows no valvular vegetation. - Blood culture 06/26/2018 [facility] in clusters 2 of 4 bottles, follow up ID and CLIFF's. 4) Anemia 5) ESRD on HD: via left AVG. Antibiotics renally dosed. Nephrology following. Recommendations: - continue airborn isolation until TB is r/o - f/u quatiferon TB gold - f/u induced respiratory cultures X 2 - f/u influenza rapid antigen and PCR in nasopharinx - f/u Legionella urine antigen, Streptococcus pneumoniae urine antigen, Mycoplasma serology, Chlamydia pneumophila serology - continue vancomycin renally adjusted , D4 -continue azithromycin and ceftriaxone, D4 of 5 -Anticipate discharge on Vancomycin 1gm IV every 48 hours post HD until 07-12-18 -order sent to case management [facility] M: [phone] O:[phone] Subjective Date of service: 07/01/18 Interval history: Patient seen and examined. Calm, mostly non conversant. Continues to report left flank pain when taking deep breaths. No fevers. Objective - Exam Narrative Exam: General appearance: Alert in NAD, calm, non conversant. No acute distress Eyes: anicteric sclerae, moist conjunctivae; no lid-lag; PERRLA HENT: Atraumatic; oropharynx clear with moist mucous membranes and no mucosal ulcerations/no oral thrush; normal hard and soft palate. Normal external ears. Neck: Trachea midline; supple, no thyromegaly or lymphadenopathy Lungs: sayra crackles, left flank pain with inspiration CV: RRR Abdomen: Soft, non-tender; no masses or hepatosplenomegaly Extremities: No peripheral edema or extremity lymphadenopathy. Left AVG Skin: Normal temperature, turgor and texture; no rash, ulcers or subcutaneous nodules Psych: flat affect Neuro: alert and oriented x 3. Moving all extermities - Constitutional Vitals: Vital Signs Temp Pulse Resp BP Pulse Ox 98.2 F 92 H 18 113/64 90 07/01/18 04:15 07/01/18 04:15 07/01/18 04:15 07/01/18 04:15 07/01/18 04:15 Temperature -Last 24 Hours Temperature 98.2 F Temperature 100.5 F Temperature 98.9 F Temperature 98.6 F - Labs CBC & Chem 7: 06/29/18 23:45 06/27/18 13:30
[2018-07-01] MEDS: COREG PO SCH (13:42)
[2018-07-01] MEDS: APRESOLINE PO SCH (13:43)
[2018-07-01] MEDS: PROCARDIA XL PO SCH (13:43)
[2018-07-01] MEDS: PERCOCET 5/325 PO PRN (13:47)
--- NOTE | 2018-07-01 14:47 | Progress Note ---
Assessment and Plan 1. ESRD: Patient is on home hemodialysis with Nxstage on MWFs. Continue HD three times a week. Next HD wednesday. 3. Anemia: Epogen. 3. Pneumonia: Followed by ID. 4. R/o TB: On TB isolation. 5. HTN. BP controlled. 6. 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 Subjective Date of service: 07/01/18 Interval history: Patient is doing ok. Objective - Vital Signs Vital signs: Vital Signs - 12hr 07/01/18 07/01/18 04:15 12:34 Temperature 98.2 F 98.8 F Pulse Rate 92 H 108 H Respiratory 18 18 Rate Blood Pressure 113/64 139/86 O2 Sat by Pulse 90 93 Oximetry - General Appearance General appearance: well-developed, appears stated age, other (RN present at the bedside, not in distress) EENT: ATNC, PERRL Neck: supple Respiratory: Present: Clear to Ascultation Cardiology: regular, S1S2, no murmurs Gastrointestinal: normoactive bowel sounds, no tenderness, no distended Integumentary: no rash, warm and dry Neurologic: no focal deficit, no asterixis, alert and oriented x3 Musculoskeletal: other (no edema, left arm AVG) - Lab 07/01/18 15:17 06/27/18 13:30 Most recent lab results Calcium 8.6 mg/dL (8.4-10.2) 06/27/18 13:30 Phosphorus 6.50 mg/dL (2.5-4.5) H 06/26/18 21:47 Medications & Allergies - Medications Allergies/Adverse Reactions: Allergies SUNDAR Inhibitors Allergy (Verified 10/08/13 03:34) Angioedema Home Medications: Home Medications Medication Instructions Recorded Confirmed Last Taken Type Carvedilol [Coreg] 25 mg PO BID 10/08/13 06/27/18 06/05/18 History NIFEdipine [NIFEdipine ER] 60 mg PO BID 10/08/13 06/27/18 06/05/18 History Cholecalciferol (Vitamin D3) 50,000 unit PO QWEEK 06/06/18 06/27/18 Unknown History [Vitamin D3] Ferric Citrate (Nf) [Auryxia (Nf)] 420 mg PO TIDWM 06/06/18 06/27/18 06/05/18 History cloNIDine [Catapres] 0.1 mg PO QHS 06/06/18 06/27/18 Unknown History hydrALAZINE [Apresoline TAB] 100 mg PO BID 06/06/18 06/27/18 06/05/18 History Active Medications: Generic Name Dose Route Start Last Admin Trade Name Freq PRN Reason Stop Dose Admin Acetaminophen 650 mg 06/27/18 11:51 06/30/18 23:00 Tylenol PO 650 mg Q4H PRN Administration Pain MILD(1-3)/Fever >100.5/LYLES Benzonatate 100 mg 06/30/18 21:40 06/30/18 22:50 Tessalon Perles PO 100 mg Q6HR PRN Administration Cough Carvedilol 25 mg 06/27/18 22:00 07/01/18 13:42 Coreg PO Not Given BID PINA Clonidine HCl 0.1 mg 06/27/18 22:00 06/30/18 22:51 Catapres PO 0.1 mg QHS PINA Administration Epoetin Thiago 20,000 unit 06/27/18 12:41 Procrit SUB-Q RADHA PRN hemodialysis Ergocalciferol 50,000 unit 06/28/18 10:00 06/28/18 12:29 Vitamin D2 PO 50,000 unit Tu PINA Administration Heparin Sodium (Porcine) 5,000 unit 06/29/18 22:00 07/01/18 07:15 Heparin SUB-Q 5,000 unit Q8HR PINA Administration Hydralazine HCl 100 mg 06/27/18 22:00 07/01/18 13:43 Apresoline PO Not Given BID PINA Hydralazine HCl 10 mg 06/27/18 19:04 06/29/18 17:33 Apresoline IV 10 mg Q4H PRN Administration BP >160/100 Sodium Chloride 100 mls @ 999 mls/hr 06/27/18 12:41 Nacl 0.9% IV RADHA PRN Hypotension Azithromycin 500 mg/ Sodium 250 mls @ 250 mls/hr 06/28/18 17:30 06/30/18 10:45 Chloride IV 250 mls/hr Q24H PINA Administration Ceftriaxone Sodium 2 gm in 100 mls @ 200 mls/hr 06/28/18 17:00 06/30/18 19:06 Rocephin/Ns 2 Gm/100 Ml IV 200 mls/hr Q24H PINA Administration Protocol Vancomycin HCl 1 gm in 250 mls @ 167.007 mls/hr 07/01/18 18:00 Vancomycin/Ns 1 Gm/250 Ml IV [email or web address] [facility] Miscellaneous Medication 420 mg 06/27/18 12:00 Ferric Citrate PO TIDWM [facility] Nifedipine 60 mg 06/27/18 22:00 07/01/18 13:43 Procardia Xl PO Not Given BID [facility] Ondansetron HCl 4 mg 06/27/18 11:51 Zofran IV Q8H PRN Nausea And Vomiting Oxycodone/Acetaminophen 1 tab 06/27/18 11:21 07/01/18 13:47 Percocet 5/325 PO 1 tab Q6H PRN Administration Pain, Moderate (4-6) Sodium Chloride 10 ml 06/27/18 22:00 06/30/18 23:04 Sodium Chloride Flush Syringe 10 Ml IV 10 ml BID PINA Administration Sodium Chloride 10 ml 06/27/18 11:51 Sodium Chloride Flush Syringe 10 Ml IV PRN PRN LINE FLUSH
[2018-07-01 15:28] LABS: Basophils # (Auto) 0.1 K/mm3 (0.0-0.1); Basophils % (Auto) 0.9 % (0.0-1.8); Eosinophils # (Auto) 0.1 K/mm3 (0.0-0.4); Eosinophils % (Auto) 1.9 % (0.0-4.3); Hemoglobin 8.7 gm/dl (10.1-14.3); Lymphocytes # (Auto) 0.8 K/mm3 (1.2-5.4); Lymphocytes % (Auto) 10.7 % (13.4-35.0); Mean Corpuscular HGB Conc 33 % (30-34); Mean Corpuscular Volume 94 fl (79-97); Monocytes # (Auto) 0.3 K/mm3 (0.0-0.8); Monocytes % (Auto) 4.5 % (0.0-7.3); Platelet Count 198 K/mm3 (140-440); Red Blood Count 2.77 M/mm3 (3.65-5.03)
[2018-07-01 15:29] LABS: Red Cell Distribution Width 22.8 % (13.2-15.2)
--- NOTE | 2018-07-01 18:14 | Progress Note ---
Assessment and Plan 32-year-old woman who presents complaining of left-sided pleuritic chest pain. She states that the pain is pretty severe, it occurs with breathing. She denies any cough, denies fever, denies shortness of breath at rest. The states that she is unable to take deep breaths due to the pain on the left side of her chest. She denies any chest trauma. Left chest pain is sharp, pleuritic, 7 out of 10, exacerbated by deep breaths, no relieving factors. Had a recent travel to [facility]. On immunosuppressant for regular transplants. ESRD- anuric status post renal transplant HTN PNA, sepsis Bacteremia r/o TB Plan HD per nephrology resume home meds VQ scan and CT angiogram negative for PE but CT scan does confirm pneumonia and suspicious lesion which may be due to TB -Respiratory isolation, antibiotics per ID, f/p sputum AFB -DVT prophylaxis with heparin Subjective Date of service: 07/01/18 Principal diagnosis: pneumonia, hypertension, ESRD. Interval history: Still coughing with slight hemoptysis, denies any fever. Objective - Exam Narrative Exam: Constitutional: Well-nourished well-developed. In no distress Head: Normocephalic atraumatic Eyes: Pupils are equal round and reactive to light Nose: No enlarged turbinates, no septal deviation. Mouth: Moist mucous membranes. Neck: Supple no thyromegaly. No bruit. No JVD Heart: Regular rate and rhythm, S1-S2 normal. No rubs murmurs or gallop Lungs: Clear to auscultation bilaterally. no rales or rhonchi Abdomen: Soft, nontender. Bowel sound are present. Extremities: No edema, no cyanosis, no clubbing. Neuro: Alert oriented Oriented x3. No focal sensory or motor deficit. Skin: No rashes or hyperpigmented spots Musculoskeletal system: No joint pain or swelling Hematological: No petechia or subcutanous hemorrhages. Immunological: No multiple septic spots on the skin Lymphatic: No generalized lymphadenopathy Psychiatry: Euthymic. Calm. - Constitutional Vitals: Vital Signs - 12hr 07/01/18 07/01/18 07/01/18 12:34 16:10 16:15 Temperature 98.8 F 99.2 F Pulse Rate 108 H 103 H 101 H Respiratory 18 20 Rate Blood Pressure 139/86 129/74 141/76 O2 Sat by Pulse 93 Oximetry 07/01/18 07/01/18 16:30 16:45 Temperature Pulse Rate 101 H 98 H Respiratory Rate Blood Pressure 118/65 141/68 O2 Sat by Pulse Oximetry - Labs CBC & Chem 7: 07/01/18 15:17 06/27/18 13:30 Labs: Abnormal lab results 07/01/18 Range/Units 15:17 RBC 2.77 L (3.65-5.03) M/mm3 Hgb 8.7 L (10.1-14.3) gm/dl Hct 26.0 L (30.3-42.9) % RDW 22.8 H (13.2-15.2) % Lymph % (Auto) 10.7 L (13.4-35.0) % Lymph # 0.8 L (1.2-5.4) K/mm3 Seg Neutrophils % 82.0 H (40.0-70.0) %
[2018-07-01] MEDS: VANCOMYCIN/NS 1 GM/250 ML 1 GM/250 ML BAG IV SCH (19:43)
[2018-07-02] MEDS: COREG PO SCH ×3 (00:24→22:53)
[2018-07-02] MEDS: PROCARDIA XL PO SCH ×3 (00:24→22:52)
[2018-07-02] MEDS: APRESOLINE PO SCH ×3 (00:25→22:54)
[2018-07-02] MEDS: CATAPRES PO SCH ×2 (00:25→22:52)
[2018-07-02] MEDS: HEPARIN SUB-Q SCH ×4 (00:26→22:54)
[2018-07-02] MEDS: SODIUM CHLORIDE FLUSH SYRINGE 10 ML IV SCH ×3 (00:27→22:58)
[2018-07-02] MEDS: PERCOCET 5/325 PO PRN ×2 (04:53→18:50)
[2018-07-02 06:40] LABS: Basophils % (Auto) 0.5 % (0.0-1.8); Eosinophils # (Auto) 0.2 K/mm3 (0.0-0.4); Eosinophils % (Auto) 2.4 % (0.0-4.3); Hematocrit 28.3 % (30.3-42.9); Hemoglobin 9.3 gm/dl (10.1-14.3); Lymphocytes # (Auto) 0.8 K/mm3 (1.2-5.4); Lymphocytes % (Auto) 12.4 % (13.4-35.0); Mean Corpuscular HGB Conc 33 % (30-34); Mean Corpuscular Volume 94 fl (79-97); Monocytes # (Auto) 0.4 K/mm3 (0.0-0.8); Monocytes % (Auto) 6.6 % (0.0-7.3); Platelet Count 223 K/mm3 (140-440); Red Blood Count 3.02 M/mm3 (3.65-5.03)
[2018-07-02 06:42] LABS: Red Cell Distribution Width 22.8 % (13.2-15.2)
[2018-07-02 06:57] LABS: Albumin 3.7 g/dL (3.9-5); BUN/Creatinine Ratio 3; Blood Urea Nitrogen 19 mg/dL (7-17); Calcium 10.1 mg/dL (8.4-10.2); Hemolysis Index 0
[2018-07-02 07:09] LABS: Alanine Aminotransferase < 5 units/L (7-56)
--- NOTE | 2018-07-02 10:57 | Progress Note ---
Assessment and Plan 32-year-old woman who presents complaining of left-sided pleuritic chest pain. She states that the pain is pretty severe, it occurs with breathing. She denies any cough, denies fever, denies shortness of breath at rest. The states that she is unable to take deep breaths due to the pain on the left side of her chest. She denies any chest trauma. Left chest pain is sharp, pleuritic, 7 out of 10, exacerbated by deep breaths, no relieving factors. Had a recent travel to [facility]. Had Renal transplant that failed and has been off all immunosuppressants. No hemoptysis - ESRD- anuric status post renal transplant that failed. On hemodialysis Wednesday was his and Fridays - HTN - PNA, - Sepsis - Bacteremia - R/o TB Plan Continue hemodialysis HD per nephrology Continue with present oral antihypertensives Continue with IV azithromycin, Rocephin, vancomycin per ID VQ scan and CT angiogram negative for PE but CT scan does confirm pneumonia and suspicious lesion which may be due to TB Respiratory isolation, antibiotics per ID, f/p sputum AFB DVT prophylaxis with heparin Disposition: Discharge if AFB negative Subjective Date of service: 07/02/18 Principal diagnosis: pneumonia, hypertension, ESRD. Interval history: Still coughing with slight hemoptysis,denies any fever. Objective - Exam Narrative Exam: Constitutional: Well-nourished well-developed.In no distress Head: Normocephalic atraumatic Eyes: Pupils are equal round and reactive to light Nose: No enlarged turbinates, no septal deviation. Mouth: Moist mucous membranes. Neck: Supple no thyromegaly. No bruit. No JVD Heart: Regular rate and rhythm, S1-S2 normal. No rubs murmurs or gallop Lungs: Clear to auscultation bilaterally. no rales or rhonchi Abdomen: Soft, nontender. Bowel sound are present. Extremities: No edema, no cyanosis, no clubbing. Neuro: Alert oriented Oriented x3. No focal sensory or motor deficit. Skin: No rashes or hyperpigmented spots Musculoskeletal system: No joint pain or swelling Hematological: No petechia or subcutanous hemorrhages. Immunological: No multiple septic spots on the skin Lymphatic: No generalized lymphadenopathy Psychiatry: Euthymic. Calm. - Constitutional Vitals: Vital Signs - 12hr 07/02/18 07/02/18 07/02/18 00:04 00:24 00:25 Temperature 99.1 F Pulse Rate 114 H 110 H 110 H Respiratory 18 Rate Blood Pressure 117/65 117/65 117/65 O2 Sat by Pulse 96 Oximetry 07/02/18 07/02/18 04:54 09:53 Temperature Pulse Rate 105 H 104 H Respiratory Rate Blood Pressure 139/85 O2 Sat by Pulse 96 Oximetry - Labs CBC & Chem 7: 07/02/18 06:00 07/02/18 06:00 Labs: Abnormal lab results 07/01/18 07/02/18 07/02/18 Range/Units 15:17 06:00 06:00 RBC 2.77 L 3.02 L (3.65-5.03) M/mm3 Hgb 8.7 L 9.3 L (10.1-14.3) gm/dl Hct 26.0 L 28.3 L (30.3-42.9) % RDW 22.8 H 22.8 H (13.2-15.2) % Lymph % (Auto) 10.7 L 12.4 L (13.4-35.0) % Lymph # 0.8 L 0.8 L (1.2-5.4) K/mm3 Seg Neutrophils % 82.0 H 78.1 H (40.0-70.0) % Sodium 135 L (137-145) mmol/L Chloride 91.2 L (98-107) mmol/L BUN 19 H (7-17) mg/dL Creatinine 6.3 H (0.7-1.2) mg/dL Glucose 102 H (65-100) mg/dL ALT < 5 L (7-56) units/L Total Protein 8.8 H (6.3-8.2) g/dL Albumin 3.7 L (3.9-5) g/dL
[2018-07-02] MEDS ORDERED: VANCOMYCIN/NS 1 GM/250 ML 1 GM/250 ML BAG IV ONE (11:00)
--- NOTE | 2018-07-02 13:46 | Progress Note ---
Assessment and Plan ESRD - Next HD Wednesday CP - Resolved, f/u Mx Pneumonia - On abx Subjective Date of service: 07/02/18 Principal diagnosis: pneumonia, hypertension, ESRD. Interval history: No complaint Objective - Vital Signs Vital signs: Vital Signs - 12hr 07/02/18 07/02/18 07/02/18 04:54 06:53 09:53 Temperature Pulse Rate 105 H 104 H Respiratory 14 Rate Blood Pressure 139/85 Blood Pressure [Right] O2 Sat by Pulse 96 Oximetry 07/02/18 11:47 Temperature 98.1 F Pulse Rate 98 H Respiratory 14 Rate Blood Pressure Blood Pressure 124/73 [Right] O2 Sat by Pulse 94 Oximetry - General Appearance General appearance: other (Awake & alert) Neck: no JVD Respiratory: Present: Clear to Ascultation Cardiology: regular, S1S2 Gastrointestinal: normal - Lab 07/02/18 06:00 07/02/18 06:00 Most recent lab results Calcium 10.1 mg/dL (8.4-10.2) D 07/02/18 06:00 Phosphorus 6.50 mg/dL (2.5-4.5) H 06/26/18 21:47 Medications & Allergies - Medications Allergies/Adverse Reactions: Allergies SUNDAR Inhibitors Allergy (Verified 10/08/13 03:34) Angioedema Home Medications: Home Medications Medication Instructions Recorded Confirmed Last Taken Type Carvedilol [Coreg] 25 mg PO BID 10/08/13 06/27/18 06/05/18 History NIFEdipine [NIFEdipine ER] 60 mg PO BID 10/08/13 06/27/18 06/05/18 History Cholecalciferol (Vitamin D3) 50,000 unit PO QWEEK 06/06/18 06/27/18 Unknown History [Vitamin D3] Ferric Citrate (Nf) [Auryxia (Nf)] 420 mg PO TIDWM 06/06/18 06/27/18 06/05/18 History cloNIDine [Catapres] 0.1 mg PO QHS 06/06/18 06/27/18 Unknown History hydrALAZINE [Apresoline TAB] 100 mg PO BID 06/06/18 06/27/18 06/05/18 History Active Medications: Generic Name Dose Route Start Last Admin Trade Name Freq PRN Reason Stop Dose Admin Acetaminophen 650 mg 06/27/18 11:51 06/30/18 23:00 Tylenol PO 650 mg Q4H PRN Administration Pain MILD(1-3)/Fever >100.5/LYLES Benzonatate 100 mg 06/30/18 21:40 06/30/18 22:50 Tessalon Perles PO 100 mg Q6HR PRN Administration Cough Carvedilol 25 mg 06/27/18 22:00 07/02/18 09:53 Coreg PO 25 mg BID PINA Administration Clonidine HCl 0.1 mg 06/27/18 22:00 07/02/18 00:25 Catapres PO Not Given QHS PINA Epoetin Thiago 20,000 unit 06/27/18 12:41 Procrit SUB-Q RADAH PRN hemodialysis Ergocalciferol 50,000 unit 06/28/18 10:00 06/28/18 12:29 Vitamin D2 PO 50,000 unit Tu PINA Administration Heparin Sodium (Porcine) 5,000 unit 06/29/18 22:00 07/02/18 05:50 Heparin SUB-Q 5,000 unit Q8HR PINA Administration Hydralazine HCl 100 mg 06/27/18 22:00 07/02/18 09:53 Apresoline PO 100 mg BID PINA Administration Hydralazine HCl 10 mg 06/27/18 19:04 06/29/18 17:33 Apresoline IV 10 mg Q4H PRN Administration BP >160/100 Sodium Chloride 100 mls @ 999 mls/hr 06/27/18 12:41 Nacl 0.9% IV RADHA PRN Hypotension Azithromycin 500 mg/ Sodium 250 mls @ 250 mls/hr 06/28/18 17:30 06/30/18 10:45 Chloride IV 250 mls/hr Q24H PINA Administration Ceftriaxone Sodium 2 gm in 100 mls @ 200 mls/hr 06/28/18 17:00 06/30/18 19:06 Rocephin/Ns 2 Gm/100 Ml IV 200 mls/hr Q24H PINA Administration Protocol Vancomycin HCl 1 gm in 250 mls @ 167.007 mls/hr 07/01/18 18:00 07/01/18 19:43 Vancomycin/Ns 1 Gm/250 Ml IV Not Given [email or web address] [facility] Miscellaneous Medication 420 mg 06/27/18 12:00 Ferric Citrate PO TIDWM [facility] Nifedipine 60 mg 06/27/18 22:00 07/02/18 09:53 Procardia Xl PO 60 mg BID PINA Administration Ondansetron HCl 4 mg 06/27/18 11:51 Zofran IV Q8H PRN Nausea And Vomiting Oxycodone/Acetaminophen 1 tab 06/27/18 11:21 07/02/18 04:53 Percocet 5/325 PO 1 tab Q6H PRN Administration Pain, Moderate (4-6) Sodium Chloride 10 ml 06/27/18 22:00 07/02/18 09:59 Sodium Chloride Flush Syringe 10 Ml IV 10 ml BID PINA Administration Sodium Chloride 10 ml 06/27/18 11:51 Sodium Chloride Flush Syringe 10 Ml IV PRN PRN LINE FLUSH
[2018-07-02] MEDS: ROCEPHIN/NS 2 GM/100 ML 2 GM/100 ML BAG IV SCH (17:42)
[2018-07-02] MEDS: ZITHROMAX 500 MG in NACL 0.9% 250ML 250 ML IV SCH (17:43)
[2018-07-03] MEDS: HEPARIN SUB-Q SCH ×3 (06:45→22:25)
[2018-07-03 06:51] LABS: Basophils # (Auto) 0.1 K/mm3 (0.0-0.1); Basophils % (Auto) 0.8 % (0.0-1.8); Eosinophils # (Auto) 0.2 K/mm3 (0.0-0.4); Hematocrit 27.2 % (30.3-42.9); Hemoglobin 9.1 gm/dl (10.1-14.3); Lymphocytes # (Auto) 0.9 K/mm3 (1.2-5.4); Mean Corpuscular HGB Conc 33 % (30-34); Mean Corpuscular Volume 94 fl (79-97); Monocytes # (Auto) 0.3 K/mm3 (0.0-0.8); Monocytes % (Auto) 5.8 % (0.0-7.3); Platelet Count 231 K/mm3 (140-440)
[2018-07-03 07:10] LABS: Albumin 3.5 g/dL (3.9-5); BUN/Creatinine Ratio 4; Blood Urea Nitrogen 32 mg/dL (7-17); Hemolysis Index 0
[2018-07-03 07:11] LABS: Alanine Aminotransferase < 5 units/L (7-56)
[2018-07-03 07:59] LABS: Red Cell Distribution Width 22.3 % (13.2-15.2)
--- NOTE | 2018-07-03 11:04 | Progress Note ---
Assessment and Plan ESRD - HD in am CP - Resolved, f/u Mx Pneumonia - On abx Subjective Date of service: 07/03/18 Principal diagnosis: pneumonia, hypertension, ESRD. Objective - Vital Signs Vital signs: Vital Signs - 12hr 07/02/18 07/03/18 23:31 05:14 Temperature 98.8 F 98.4 F Pulse Rate 96 H 100 H Respiratory 28 H Rate Blood Pressure 138/78 Blood Pressure 137/86 [Right] O2 Sat by Pulse 97 96 Oximetry - General Appearance General appearance: other (Awake & alert. No Change) - Lab 07/03/18 06:04 07/03/18 06:04 Most recent lab results Calcium 10.0 mg/dL (8.4-10.2) 07/03/18 06:04 Phosphorus 6.70 mg/dL (2.5-4.5) H 07/03/18 06:04 Magnesium 1.90 mg/dL (1.7-2.3) 07/03/18 06:04 Medications & Allergies - Medications Allergies/Adverse Reactions: Allergies SUNDAR Inhibitors Allergy (Verified 10/08/13 03:34) Angioedema Home Medications: Home Medications Medication Instructions Recorded Confirmed Last Taken Type Carvedilol [Coreg] 25 mg PO BID 10/08/13 06/27/18 06/05/18 History NIFEdipine [NIFEdipine ER] 60 mg PO BID 10/08/13 06/27/18 06/05/18 History Cholecalciferol (Vitamin D3) 50,000 unit PO QWEEK 06/06/18 06/27/18 Unknown History [Vitamin D3] Ferric Citrate (Nf) [Auryxia (Nf)] 420 mg PO TIDWM 06/06/18 06/27/18 06/05/18 History cloNIDine [Catapres] 0.1 mg PO QHS 06/06/18 06/27/18 Unknown History hydrALAZINE [Apresoline TAB] 100 mg PO BID 06/06/18 06/27/18 06/05/18 History Active Medications: Generic Name Dose Route Start Last Admin Trade Name Freq PRN Reason Stop Dose Admin Acetaminophen 650 mg 06/27/18 11:51 06/30/18 23:00 Tylenol PO 650 mg Q4H PRN Administration Pain MILD(1-3)/Fever >100.5/LYLES Benzonatate 100 mg 06/30/18 21:40 06/30/18 22:50 Tessalon Perles PO 100 mg Q6HR PRN Administration Cough Carvedilol 25 mg 06/27/18 22:00 07/02/18 22:53 Coreg PO 25 mg BID PINA Administration Clonidine HCl 0.1 mg 06/27/18 22:00 07/02/18 22:52 Catapres PO 0.1 mg QHS PINA Administration Epoetin Thiago 20,000 unit 06/27/18 12:41 Procrit SUB-Q RADHA PRN hemodialysis Ergocalciferol 50,000 unit 06/28/18 10:00 06/28/18 12:29 Vitamin D2 PO 50,000 unit Tu PINA Administration Heparin Sodium (Porcine) 5,000 unit 06/29/18 22:00 07/03/18 06:45 Heparin SUB-Q 5,000 unit Q8HR PINA Administration Hydralazine HCl 100 mg 06/27/18 22:00 07/02/18 22:54 Apresoline PO 100 mg BID PINA Administration Hydralazine HCl 10 mg 06/27/18 19:04 06/29/18 17:33 Apresoline IV 10 mg Q4H PRN Administration BP >160/100 Sodium Chloride 100 mls @ 999 mls/hr 06/27/18 12:41 Nacl 0.9% IV RADHA PRN Hypotension Azithromycin 500 mg/ Sodium 250 mls @ 250 mls/hr 06/28/18 17:30 07/02/18 17:43 Chloride IV 250 mls/hr Q24H PINA Administration Ceftriaxone Sodium 2 gm in 100 mls @ 200 mls/hr 06/28/18 17:00 07/02/18 17:42 Rocephin/Ns 2 Gm/100 Ml IV 200 mls/hr Q24H PINA Administration Protocol Vancomycin HCl 1 gm in 250 mls @ 167.007 mls/hr 07/01/18 18:00 07/01/18 19:43 Vancomycin/Ns 1 Gm/250 Ml IV Not Given [email or web address] PINA Nifedipine 60 mg 06/27/18 22:00 07/02/18 22:52 Procardia Xl PO 60 mg BID PINA Administration Ondansetron HCl 4 mg 06/27/18 11:51 Zofran IV Q8H PRN Nausea And Vomiting Oxycodone/Acetaminophen 1 tab 06/27/18 11:21 07/02/18 18:50 Percocet 5/325 PO 1 tab Q6H PRN Administration Pain, Moderate (4-6) Sodium Chloride 10 ml 06/27/18 22:00 07/02/18 22:58 Sodium Chloride Flush Syringe 10 Ml IV 10 ml BID PINA Administration Sodium Chloride 10 ml 06/27/18 11:51 Sodium Chloride Flush Syringe 10 Ml IV PRN PRN LINE FLUSH
[2018-07-03] MEDS ORDERED: HEPARIN IV PRN (11:05)
[2018-07-03] MEDS ORDERED: HEPARIN 10,000 UNITS/10 ML IV PRN (11:05)
[2018-07-03] MEDS ORDERED: PROCRIT IV PRN (11:05)
[2018-07-03] MEDS ORDERED: NACL 0.9% 100 ML IV PRN (11:05)
[2018-07-03] MEDS: PROCARDIA XL PO SCH ×3 (12:12→22:22)
[2018-07-03] MEDS: COREG PO SCH ×2 (12:13→22:23)
[2018-07-03] MEDS: APRESOLINE PO SCH ×2 (12:13→22:23)
[2018-07-03] MEDS: SODIUM CHLORIDE FLUSH SYRINGE 10 ML IV SCH ×3 (12:13→22:22)
--- NOTE | 2018-07-03 13:13 | Progress Note ---
Subjective Date of service: 07/03/18 Principal diagnosis: pneumonia, hypertension, ESRD. Interval history: coughing is better. no hemoptysis aat any time Denies any fever. Objective - Exam Narrative Exam: Constitutional: Well-nourished well-developed.In no distress Head: Normocephalic atraumatic Eyes: Pupils are equal round and reactive to light Nose: No enlarged turbinates, no septal deviation. Mouth: Moist mucous membranes. Neck: Supple no thyromegaly. No bruit. No JVD Heart: Regular rate and rhythm, S1-S2 normal. No rubs murmurs or gallop Lungs: Clear to auscultation bilaterally. no rales or rhonchi Abdomen: Soft, nontender. Bowel sound are present. Extremities: No edema, no cyanosis, no clubbing. Neuro: Alert oriented Oriented x3. No focal sensory or motor deficit. Skin: No rashes or hyperpigmented spots Musculoskeletal system: No joint pain or swelling Hematological: No petechia or subcutanous hemorrhages. Immunological: No multiple septic spots on the skin Lymphatic: No generalized lymphadenopathy Psychiatry: Euthymic. Calm. - Constitutional Vitals: Vital Signs - 12hr 07/03/18 07/03/18 07/03/18 05:14 11:11 12:13 Temperature 98.4 F 97.7 F Pulse Rate 100 H 101 H 101 H Respiratory 28 H 16 Rate Blood Pressure 138/78 148/116 148/116 O2 Sat by Pulse 96 97 Oximetry - Labs CBC & Chem 7: 07/03/18 06:04 07/03/18 06:04 Labs: Abnormal lab results 07/03/18 07/03/18 Range/Units 06:04 06:04 RBC 2.90 L (3.65-5.03) M/mm3 Hgb 9.1 L (10.1-14.3) gm/dl Hct 27.2 L (30.3-42.9) % RDW 22.3 H (13.2-15.2) % Lymph # 0.9 L (1.2-5.4) K/mm3 Seg Neutrophils % 74.4 H (40.0-70.0) % Sodium 134 L (137-145) mmol/L Chloride 88.7 L (98-107) mmol/L BUN 32 H (7-17) mg/dL Creatinine 8.5 H (0.7-1.2) mg/dL Phosphorus 6.70 H (2.5-4.5) mg/dL ALT < 5 L (7-56) units/L Albumin 3.5 L (3.9-5) g/dL
--- NOTE | 2018-07-03 14:53 | Progress Note ---
Assessment and Plan 32-year-old woman who presents complaining of left-sided pleuritic chest pain. She states that the pain is pretty severe, it occurs with breathing. She denies any cough, denies fever, denies shortness of breath at rest. The states that she is unable to take deep breaths due to the pain on the left side of her chest. She denies any chest trauma. Left chest pain is sharp, pleuritic, 7 out of 10, exacerbated by deep breaths, no relieving factors. Had a recent travel to [facility]. 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 Has been off all immunosuppressants. No hemoptysis - ESRD - anuric status post renal transplant that failed. On hemodialysis MWF - HTN - PNA, - Sepsis - Bacteremia - R/o TB Plan Continue hemodialysis per nephrology Continue with present oral antihypertensives Continue with IV azithromycin, Rocephin, vancomycin per ID VQ scan and CT angiogram negative for PE but CT scan does confirm pneumonia and suspicious lesion which may be due to TB Respiratory isolation, antibiotics per ID, f/p sputum AFB DVT prophylaxis with heparin Disposition: Discharge if AFB negative Subjective Date of service: 07/03/18 Principal diagnosis: pneumonia, hypertension, ESRD. Interval history: coughing is better. hemoptysis at any time. Denies any fever. Objective - Exam Narrative Exam: Constitutional: Well-nourished well-developed. In no distress Head: Normocephalic atraumatic Eyes: Pupils are equal round and reactive to light Nose: No enlarged turbinates, no septal deviation. Mouth: Moist mucous membranes. Neck: Supple no thyromegaly. No bruit. No JVD Heart: Regular rate and rhythm, S1-S2 normal. No rubs murmurs or gallop Lungs: Clear to auscultation bilaterally. no rales or rhonchi Abdomen: Soft, nontender. Bowel sound are present. Extremities: No edema, no cyanosis, no clubbing. Neuro: Alert oriented Oriented x3. No focal sensory or motor deficit. Skin: No rashes or hyperpigmented spots Musculoskeletal system: No joint pain or swelling Hematological: No petechia or subcutanous hemorrhages. Immunological: No multiple septic spots on the skin Lymphatic: No generalized lymphadenopathy Psychiatry: Euthymic. Calm. - Constitutional Vitals: Vital Signs - 12hr 07/03/18 07/03/18 07/03/18 05:14 11:11 12:13 Temperature 98.4 F 97.7 F Pulse Rate 100 H 101 H 101 H Respiratory 28 H 16 Rate Blood Pressure 138/78 148/116 148/116 O2 Sat by Pulse 96 97 Oximetry - Labs CBC & Chem 7: 07/03/18 06:04 07/03/18 06:04 Labs: Abnormal lab results 07/03/18 07/03/18 Range/Units 06:04 06:04 RBC 2.90 L (3.65-5.03) M/mm3 Hgb 9.1 L (10.1-14.3) gm/dl Hct 27.2 L (30.3-42.9) % RDW 22.3 H (13.2-15.2) % Lymph # 0.9 L (1.2-5.4) K/mm3 Seg Neutrophils % 74.4 H (40.0-70.0) % Sodium 134 L (137-145) mmol/L Chloride 88.7 L (98-107) mmol/L BUN 32 H (7-17) mg/dL Creatinine 8.5 H (0.7-1.2) mg/dL Phosphorus 6.70 H (2.5-4.5) mg/dL ALT < 5 L (7-56) units/L Albumin 3.5 L (3.9-5) g/dL
[2018-07-03] MEDS: ROCEPHIN/NS 2 GM/100 ML 2 GM/100 ML BAG IV SCH (17:04)
[2018-07-03] MEDS: ZITHROMAX 500 MG in NACL 0.9% 250ML 250 ML IV SCH (17:55)
[2018-07-03] MEDS: CATAPRES PO SCH (22:24)
[2018-07-04] MEDS: HEPARIN SUB-Q SCH ×3 (06:31→22:11)
[2018-07-04 07:46] LABS: Basophils # (Auto) 0.1 K/mm3 (0.0-0.1); Basophils % (Auto) 1.2 % (0.0-1.8); Eosinophils # (Auto) 0.2 K/mm3 (0.0-0.4); Eosinophils % (Auto) 3.6 % (0.0-4.3); Hematocrit 27.4 % (30.3-42.9); Lymphocytes % (Auto) 17.8 % (13.4-35.0); Mean Corpuscular HGB Conc 33 % (30-34); Mean Corpuscular Volume 93 fl (79-97); Monocytes # (Auto) 0.4 K/mm3 (0.0-0.8); Monocytes % (Auto) 6.6 % (0.0-7.3); Platelet Count 255 K/mm3 (140-440); Red Blood Count 2.95 M/mm3 (3.65-5.03)
[2018-07-04 07:57] LABS: Red Cell Distribution Width 22.8 % (13.2-15.2)
[2018-07-04 08:13] LABS: Albumin 3.3 g/dL (3.9-5); BUN/Creatinine Ratio 4; Blood Urea Nitrogen 44 mg/dL (7-17); Calcium 9.6 mg/dL (8.4-10.2); Hemolysis Index 0
[2018-07-04 08:18] LABS: Alanine Aminotransferase < 5 units/L (7-56)
--- NOTE | 2018-07-04 08:39 | Progress Note ---
Assessment and Plan Assessment and Plan Cultures: Blood culture 06/26/2018 MRSE, 2 out of 4 bottles Blood culture 06/28/2018 no growth to date Parasite smear 06/28/2018: negative Assessment: 32 y/o female with history ESRD on home HD via left AVG, she is on HD since 1996 s/p failed kidney transplant (between 2002 and 2005); admitted on 06/26/2018 due to 2-day history of cough with clear sputum and severe sharp left chest pain: 1) Sepsis: Not Present on admission. No fevers in >24 hours. Etiology most likely Staph Epidermidis Bacteremia, +/- pneumonia. UA not obtained she does not make urine. CRP 38.70 Influenza rapid and PCR; negative 2) Left Cavitating Pneumonia?: high risk for pulmonary TB as she recently traveled to [facility] in Mar 2018 for 2 months.and was on immunosuppressants for renal transplant. Patient had a "bad cold" with runny nose, chest congestion 2 weeks before admission treated with Augmetin and prednisone for 10 days. She reports multiple sick contacts recently. . DDX TB, CAP, bilateral. VQ scan low probability for PE. Chest CT: findings consistent with pneumonia involving bilateral lungs, mild degree of left pleural effusion Chest CTA: There is complete atelectasis of the left lower lobe. focal rounded airspace opacity measuring up to 4 cm in the posterior lingula which is concerning for an infiltrate. Small left pleural effusion and trace right pleural effusion. 3) MRSE Bacteremia: likely contaminant, source unclear AVG. TTE shows no valvular vegetation. - Blood culture 06/26/2018 GPC in clusters 2 of 4 bottles 4) Anemia 5) ESRD on HD: via left AVG. Antibiotics renally dosed. Nephrology following. Recommendations: - CT reviewed by Dr. Ellsworth, didn't see a cavitary pneumonia. Also acute presentation, less likely to be TB - follow up the AFB sputum x 1 and the TB quantiferon, if negative, even if unable to get the remaining AFBs, we can d/c airborne isolation - complete pneumonia treatment and follow up in ID clinic - f/u Legionella urine antigen, Streptococcus pneumoniae urine antigen, Mycoplasma serology, Chlamydia pneumophila serology - continue vancomycin renally adjusted , D5 -continue azithromycin, D5 of 5 - last dose today -continue Ceftriaxone, D5 of D7 -Anticipate discharge on Vancomycin 1gm IV every 48 hours post HD until 07-12-18 -order sent to case management [facility] M: [id number] O:[phone] Subjective Date of service: 07/04/18 Principal diagnosis: pneumonia, hypertension, ESRD. Interval history: Patient seen and examined. Denies chest pain, SOB or rashes. States that she is able to take a deep breath without discomfort. Objective - Exam Narrative Exam: General appearance: Alert in NAD, no acute distress. Eyes: anicteric sclerae, moist conjunctivae; no lid-lag; PERRLA HENT: Atraumatic; oropharynx clear with moist mucous membranes and no mucosal ulcerations/no oral thrush; normal hard and soft palate. Normal external ears. Neck: Trachea midline; supple, no thyromegaly or lymphadenopathy Lungs: clear to auscultation. CV: RRR Abdomen: Soft, non-tender; no masses or hepatosplenomegaly Extremities: No peripheral edema or extremity lymphadenopathy. Left AVG Skin: Normal temperature, turgor and texture; no rash, ulcers or subcutaneous nodules Psych: flat affect Neuro: alert and oriented x 3. Moving all extermities - Constitutional Vitals: Vital Signs Temp Pulse Resp BP Pulse Ox 98.0 F 86 20 124/72 97 07/04/18 04:30 07/04/18 04:30 07/04/18 04:30 07/04/18 04:30 07/04/18 04:30 Temperature -Last 24 Hours Temperature 98.0 F Temperature 98.3 F Temperature 98.3 F Temperature 97.7 F - Labs CBC & Chem 7: 07/04/18 07:07 07/04/18 07:07 Labs: Abnormal lab results 07/04/18 07/04/18 Range/Units 07:07 07:07 RBC 2.95 L (3.65-5.03) M/mm3 Hgb 9.0 L (10.1-14.3) gm/dl Hct 27.4 L (30.3-42.9) % RDW 22.8 H (13.2-15.2) % Lymph # 1.0 L (1.2-5.4) K/mm3 Seg Neutrophils % 70.8 H (40.0-70.0) % Chloride 93.7 L (98-107) mmol/L BUN 44 H (7-17) mg/dL Creatinine 11.1 H (0.7-1.2) mg/dL ALT < 5 L (7-56) units/L Albumin 3.3 L (3.9-5) g/dL
--- NOTE | 2018-07-04 13:12 | Progress Note ---
Assessment and Plan 1. ESRD: Patient is on home hemodialysis with Nxstage on MWFs. Continue HD three times a week, MWF schedule. 3. Anemia: Epogen. 3. Pneumonia: Followed by ID. 4. R/o TB: On TB isolation. 5. HTN. BP controlled. 6. Medical non-compliance: Counseled. Subjective Date of service: 07/04/18 Principal diagnosis: pneumonia, hypertension, ESRD. Interval history: Patient was seen and examined while on HD. Objective - Vital Signs Vital signs: Vital Signs - 12hr 07/04/18 07/04/18 04:30 11:14 Temperature 98.0 F 97.9 F Pulse Rate 86 92 H Respiratory 20 15 Rate Blood Pressure 124/72 155/101 O2 Sat by Pulse 97 97 Oximetry - General Appearance General appearance: well-developed, appears stated age, other (not in distress) EENT: ATNC, PERRL, mucous membranes moist, hearing intact, vision intact Neck: supple Respiratory: Present: Rales Cardiology: regular, S1S2, no murmurs Gastrointestinal: normoactive bowel sounds Integumentary: no rash, warm and dry Neurologic: no focal deficit, no asterixis, alert and oriented x3 Musculoskeletal: other (left arm AVG, no edema) - Lab 07/04/18 07:07 07/04/18 07:07 Most recent lab results Calcium 9.6 mg/dL (8.4-10.2) 07/04/18 07:07 Phosphorus 6.70 mg/dL (2.5-4.5) H 07/03/18 06:04 Magnesium 1.90 mg/dL (1.7-2.3) 07/03/18 06:04 Medications & Allergies - Medications Allergies/Adverse Reactions: Allergies SUNDAR Inhibitors Allergy (Verified 10/08/13 03:34) Angioedema Home Medications: Home Medications Medication Instructions Recorded Confirmed Last Taken Type Carvedilol [Coreg] 25 mg PO BID 10/08/13 06/27/18 06/05/18 History NIFEdipine [NIFEdipine ER] 60 mg PO BID 10/08/13 06/27/18 06/05/18 History Cholecalciferol (Vitamin D3) 50,000 unit PO QWEEK 06/06/18 06/27/18 Unknown History [Vitamin D3] Ferric Citrate (Nf) [Auryxia (Nf)] 420 mg PO TIDWM 06/06/18 06/27/18 06/05/18 History cloNIDine [Catapres] 0.1 mg PO QHS 06/06/18 06/27/18 Unknown History hydrALAZINE [Apresoline TAB] 100 mg PO BID 06/06/18 06/27/18 06/05/18 History Active Medications: Generic Name Dose Route Start Last Admin Trade Name Freq PRN Reason Stop Dose Admin Acetaminophen 650 mg 06/27/18 11:51 06/30/18 23:00 Tylenol PO 650 mg Q4H PRN Administration Pain MILD(1-3)/Fever >100.5/LYLES Benzonatate 100 mg 06/30/18 21:40 06/30/18 22:50 Tessalon Perles PO 100 mg Q6HR PRN Administration Cough Carvedilol 25 mg 06/27/18 22:00 07/03/18 22:23 Coreg PO 25 mg BID PINA Administration Clonidine HCl 0.1 mg 06/27/18 22:00 07/03/18 22:24 Catapres PO 0.1 mg QHS PINA Administration Epoetin Thiago 10,000 unit 07/03/18 11:05 Procrit IV RADHA PRN hemodialysis Ergocalciferol 50,000 unit 06/28/18 10:00 06/28/18 12:29 Vitamin D2 PO 50,000 unit Tu PINA Administration Heparin Sodium (Porcine) 5,000 unit 06/29/18 22:00 07/04/18 06:31 Heparin SUB-Q 5,000 unit Q8HR PINA Administration Heparin Sodium (Porcine) 2,000 unit 07/03/18 11:05 Heparin 10,000 Units/10 Ml IV RADHA PRN hemodialysis Heparin Sodium (Porcine) 5,000 unit 07/03/18 11:05 Heparin IV RADHA PRN hemodialysis Hydralazine HCl 100 mg 06/27/18 22:00 07/03/18 22:23 Apresoline PO 100 mg BID PINA Administration Hydralazine HCl 10 mg 06/27/18 19:04 06/29/18 17:33 Apresoline IV 10 mg Q4H PRN Administration BP >160/100 Azithromycin 500 mg/ Sodium 250 mls @ 250 mls/hr 06/28/18 17:30 07/03/18 17:55 Chloride IV 250 mls/hr Q24H PINA Administration Ceftriaxone Sodium 2 gm in 100 mls @ 200 mls/hr 06/28/18 17:00 07/03/18 17:04 Rocephin/Ns 2 Gm/100 Ml IV 200 mls/hr Q24H PINA Administration Protocol Vancomycin HCl 1 gm in 250 mls @ 167.007 mls/hr 07/01/18 18:00 07/01/18 19:43 Vancomycin/Ns 1 Gm/250 Ml IV Not Given [email or web address] PINA Sodium Chloride 100 mls @ 999 mls/hr 07/03/18 11:05 Nacl 0.9% IV RADHA PRN Hypotension Nifedipine 60 mg 06/27/18 22:00 07/03/18 22:22 Procardia Xl PO 60 mg BID PINA Administration Ondansetron HCl 4 mg 06/27/18 11:51 Zofran IV Q8H PRN Nausea And Vomiting Oxycodone/Acetaminophen 1 tab 06/27/18 11:21 07/02/18 18:50 Percocet 5/325 PO 1 tab Q6H PRN Administration Pain, Moderate (4-6) Sodium Chloride 10 ml 06/27/18 22:00 07/03/18 22:22 Sodium Chloride Flush Syringe 10 Ml IV 10 ml BID PINA Administration Sodium Chloride 10 ml 06/27/18 11:51 Sodium Chloride Flush Syringe 10 Ml IV PRN PRN LINE FLUSH
[2018-07-04] MEDS: APRESOLINE PO SCH ×2 (15:35→22:12)
[2018-07-04] MEDS: COREG PO SCH ×2 (15:36→22:13)
[2018-07-04] MEDS: PROCARDIA XL PO SCH ×2 (15:36→22:12)
--- NOTE | 2018-07-04 17:42 | Progress Note ---
Assessment and Plan 32-year-old woman who presents complaining of left-sided pleuritic chest pain. She states that the pain is pretty severe, it occurs with breathing. She denies any cough, denies fever, denies shortness of breath at rest. The states that she is unable to take deep breaths due to the pain on the left side of her chest. She denies any chest trauma. Left chest pain is sharp, pleuritic, 7 out of 10, exacerbated by deep breaths, no relieving factors. Had a recent travel to [facility]. 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 Has been off all immunosuppressants. No hemoptysis - ESRD - anuric status post renal transplant that failed. On hemodialysis MWF - HTN - PNA, - Sepsis - Bacteremia - R/o TB Plan Continue hemodialysis per nephrology Continue with present oral antihypertensives Continue with IV azithromycin, Rocephin, vancomycin per ID VQ scan and CT angiogram negative for PE but CT scan does confirm pneumonia and suspicious lesion which may be due to TB Respiratory isolation, antibiotics per ID, f/p sputum AFB DVT prophylaxis with heparin Disposition: Discharge if AFB is negative Subjective Date of service: 07/04/18 Principal diagnosis: pneumonia, hypertension, ESRD. Interval history: coughing is better. No hemoptysis at any time. Denies any fever. Objective - Exam Narrative Exam: Constitutional: Well-nourished well-developed. In no distress Head: Normocephalic atraumatic Eyes: Pupils are equal round and reactive to light Nose: No enlarged turbinates, no septal deviation. Mouth: Moist mucous membranes. Neck: Supple no thyromegaly. No bruit. No JVD Heart: Regular rate and rhythm, S1-S2 normal. No rubs murmurs or gallop Lungs: Clear to auscultation bilaterally. no rales or rhonchi Abdomen: Soft, nontender. Bowel sound are present. Extremities: No edema, no cyanosis, no clubbing. Neuro: Alert oriented Oriented x3. No focal sensory or motor deficit. Skin: No rashes or hyperpigmented spots Musculoskeletal system: No joint pain or swelling Hematological: No petechia or subcutanous hemorrhages. Immunological: No multiple septic spots on the skin Lymphatic: No generalized lymphadenopathy Psychiatry: Euthymic. Calm. - Constitutional Vitals: Vital Signs - 12hr 07/04/18 07/04/18 07/04/18 11:14 14:55 15:00 Temperature 97.9 F Pulse Rate 92 H 84 83 Respiratory 15 Rate Blood Pressure 155/101 167/88 168/89 O2 Sat by Pulse 97 Oximetry 07/04/18 07/04/18 07/04/18 15:07 15:15 15:30 Temperature 97.9 F Pulse Rate 83 86 85 Respiratory 15 Rate Blood Pressure 163/84 157/85 162/82 O2 Sat by Pulse Oximetry 07/04/18 07/04/18 07/04/18 15:45 16:00 16:15 Temperature Pulse Rate 88 84 81 Respiratory Rate Blood Pressure 165/80 162/84 157/78 O2 Sat by Pulse Oximetry 07/04/18 07/04/18 07/04/18 16:30 16:45 17:00 Temperature Pulse Rate 89 98 H 103 H Respiratory Rate Blood Pressure 155/82 142/85 152/52 O2 Sat by Pulse Oximetry - Labs CBC & Chem 7: 07/04/18 07:07 07/04/18 07:07 Labs: Abnormal lab results 07/04/18 07/04/18 Range/Units 07:07 07:07 RBC 2.95 L (3.65-5.03) M/mm3 Hgb 9.0 L (10.1-14.3) gm/dl Hct 27.4 L (30.3-42.9) % RDW 22.8 H (13.2-15.2) % Lymph # 1.0 L (1.2-5.4) K/mm3 Seg Neutrophils % 70.8 H (40.0-70.0) % Chloride 93.7 L (98-107) mmol/L BUN 44 H (7-17) mg/dL Creatinine 11.1 H (0.7-1.2) mg/dL ALT < 5 L (7-56) units/L Albumin 3.3 L (3.9-5) g/dL
[2018-07-04] MEDS: SODIUM CHLORIDE FLUSH SYRINGE 10 ML IV SCH ×2 (19:52→22:13)
[2018-07-04] MEDS: VANCOMYCIN/NS 1 GM/250 ML 1 GM/250 ML BAG IV SCH (19:55)
[2018-07-04] MEDS: CATAPRES PO SCH (22:12)
[2018-07-05] MEDS: HEPARIN SUB-Q SCH ×2 (06:00→14:54)
--- NOTE | 2018-07-05 07:00 | Progress Note ---
Assessment and Plan 1. ESRD: Patient is on home hemodialysis with Nxstage on MWFs. Continue HD three times a week, MWF schedule. 3. Anemia: Epogen. 3. Pneumonia: Followed by ID. 4. R/o TB: On TB isolation. 5. HTN. BP controlled. 6. Medical non-compliance: Counseled. Subjective Date of service: 07/05/18 Principal diagnosis: pneumonia, hypertension, ESRD. Interval history: Patient was seen and examined at the bedside. Objective - Vital Signs Vital signs: Vital Signs - 12hr 07/04/18 07/04/18 07/05/18 22:12 22:13 05:34 Temperature 98.1 F Pulse Rate 88 88 85 Respiratory 24 Rate Blood Pressure 144/92 144/92 134/81 O2 Sat by Pulse 98 Oximetry - General Appearance General appearance: well-developed, appears stated age, other (not in distress, RN present at the bedside) EENT: ATNC, PERRL, mucous membranes moist, hearing intact, vision intact Neck: supple Respiratory: Present: Clear to Ascultation Cardiology: regular, S1S2, no murmurs Gastrointestinal: normoactive bowel sounds, no tenderness, no distended Integumentary: no rash, warm and dry Neurologic: no focal deficit, no asterixis, alert and oriented x3 Musculoskeletal: other (no edema, left arm AVG) - Lab 07/05/18 08:44 07/05/18 08:44 Most recent lab results Calcium 9.6 mg/dL (8.4-10.2) 07/04/18 07:07 Phosphorus 6.70 mg/dL (2.5-4.5) H 07/03/18 06:04 Magnesium 1.90 mg/dL (1.7-2.3) 07/03/18 06:04 Medications & Allergies - Medications Allergies/Adverse Reactions: Allergies SUNDAR Inhibitors Allergy (Verified 10/08/13 03:34) Angioedema Home Medications: Home Medications Medication Instructions Recorded Confirmed Last Taken Type Carvedilol [Coreg] 25 mg PO BID 10/08/13 06/27/18 06/05/18 History NIFEdipine [NIFEdipine ER] 60 mg PO BID 10/08/13 06/27/18 06/05/18 History Cholecalciferol (Vitamin D3) 50,000 unit PO QWEEK 06/06/18 06/27/18 Unknown History [Vitamin D3] Ferric Citrate (Nf) [Auryxia (Nf)] 420 mg PO TIDWM 06/06/18 06/27/18 06/05/18 History cloNIDine [Catapres] 0.1 mg PO QHS 06/06/18 06/27/18 Unknown History hydrALAZINE [Apresoline TAB] 100 mg PO BID 06/06/18 06/27/18 06/05/18 History Linezolid [Zyvox] 600 mg PO BID #15 tablet 07/05/18 Unknown Rx Active Medications: Generic Name Dose Route Start Last Admin Trade Name Freq PRN Reason Stop Dose Admin Acetaminophen 650 mg 06/27/18 11:51 06/30/18 23:00 Tylenol PO 650 mg Q4H PRN Administration Pain MILD(1-3)/Fever >100.5/LYLES Benzonatate 100 mg 06/30/18 21:40 06/30/18 22:50 Tessalon Perles PO 100 mg Q6HR PRN Administration Cough Carvedilol 25 mg 06/27/18 22:00 07/04/18 22:13 Coreg PO 25 mg BID [facility] Administration Clonidine HCl 0.1 mg 06/27/18 22:00 07/04/18 22:12 Catapres PO 0.1 mg QHS [facility] Administration Epoetin Thiago 10,000 unit 07/03/18 11:05 Procrit IV RADHA PRN hemodialysis Ergocalciferol 50,000 unit 06/28/18 10:00 06/28/18 12:29 Vitamin D2 PO 50,000 unit Tu [facility] Administration Heparin Sodium (Porcine) 5,000 unit 06/29/18 22:00 07/05/18 06:00 Heparin SUB-Q Not Given Q8HR [facility] Heparin Sodium (Porcine) 2,000 unit 07/03/18 11:05 Heparin 10,000 Units/10 Ml IV RADHA PRN hemodialysis Heparin Sodium (Porcine) 5,000 unit 07/03/18 11:05 Heparin IV RADHA PRN hemodialysis Hydralazine HCl 100 mg 06/27/18 22:00 07/04/18 22:12 Apresoline PO 100 mg BID PINA Administration Hydralazine HCl 10 mg 06/27/18 19:04 06/29/18 17:33 Apresoline IV 10 mg Q4H PRN Administration BP >160/100 Ceftriaxone Sodium 2 gm in 100 mls @ 200 mls/hr 06/28/18 17:00 07/03/18 17:04 Rocephin/Ns 2 Gm/100 Ml IV 200 mls/hr Q24H PINA Administration Protocol Vancomycin HCl 1 gm in 250 mls @ 167.007 mls/hr 07/01/18 18:00 07/04/18 19:55 Vancomycin/Ns 1 Gm/250 Ml IV 167.007 mls/hr [id number] PINA Administration Sodium Chloride 100 mls @ 999 mls/hr 07/03/18 11:05 Nacl 0.9% IV RADHA PRN Hypotension Nifedipine 60 mg 06/27/18 22:00 07/04/18 22:12 Procardia Xl PO 60 mg BID PINA Administration Ondansetron HCl 4 mg 06/27/18 11:51 Zofran IV Q8H PRN Nausea And Vomiting Oxycodone/Acetaminophen 1 tab 06/27/18 11:21 07/02/18 18:50 Percocet 5/325 PO 1 tab Q6H PRN Administration Pain, Moderate (4-6) Sodium Chloride 10 ml 06/27/18 22:00 07/04/18 22:13 Sodium Chloride Flush Syringe 10 Ml IV 10 ml BID PINA Administration Sodium Chloride 10 ml 06/27/18 11:51 Sodium Chloride Flush Syringe 10 Ml IV PRN PRN LINE FLUSH
--- NOTE | 2018-07-05 08:13 | Progress Note ---
Assessment and Plan Assessment and Plan Cultures: Blood culture 06/26/2018 MRSE, 2 out of 4 bottles Blood culture 06/28/2018 no growth Parasite smear 06/28/2018: negative AFB smear06/29/2018: negative Assessment: 32 y/o female with history ESRD on home HD via left AVG, she is on HD since 1996 s/p failed kidney transplant (between 2002 and 2005); admitted on 06/26/2018 due to 2-day history of cough with clear sputum and severe sharp left chest pain: 1) Sepsis: Not Present on admission. No fevers in >24 hours. Etiology most likely Staph Epidermidis Bacteremia, +/- pneumonia. UA not obtained she does not make urine. CRP 38.70 Influenza rapid and PCR; negative 2) Pulmonary TB ? : CT reviewed acute presentation, less likely TB. follow up the AFB sputum x 1 negative. Can discharge home on IV Vancomycin or PO Linezolid. Chest CT: findings consistent with pneumonia involving bilateral lungs, mild degree of left pleural effusion Chest CTA: There is complete atelectasis of the left lower lobe. focal rounded airspace opacity measuring up to 4 cm in the posterior lingula which is concerning for an infiltrate. Small left pleural effusion and trace right pleural effusion. 3) MRSE Bacteremia: source unclear AVG. TTE shows no valvular vegetation. - Blood culture 06/26/2018 GPC in clusters 2 of 4 bottles. Repeat BC show no growth 4) Anemia: Improved 5) ESRD on HD: via left AVG. Antibiotics renally dosed. Nephrology following. Recommendations: - f/u Legionella urine antigen, Streptococcus pneumoniae urine antigen, Mycoplasma serology, Chlamydia pneumophila serology - continue vancomycin renally adjusted while inpatient -discontinue Azithromycin -discontinue Ceftriaxone -Anticipate discharge on Vancomycin 1gm IV post HD or Linezolid 600 mg BID until 07-12-18 -follow up ID clinic in 2 weeks ID is singing off [facility] M: [id number] O:[phone] Subjective Date of service: 07/05/18 Principal diagnosis: pneumonia, hypertension, ESRD. Interval history: Patient seen and examined. Denies chest pain, SOB or rashes. States that she is feeling better today, denies pleuritic chest pain.. no fevers. Objective - Exam Narrative Exam: General appearance: Alert in NAD, conversant. no acute distress. Eyes: anicteric sclerae, moist conjunctivae; no lid-lag; PERRLA HENT: Atraumatic; oropharynx clear with moist mucous membranes and no mucosal ulcerations/no oral thrush; normal hard and soft palate. Normal external ears. Neck: Trachea midline; supple, no thyromegaly or lymphadenopathy Lungs: clear to auscultation. CV: RRR Abdomen: Soft, non-tender; no masses or hepatosplenomegaly Extremities: No peripheral edema or extremity lymphadenopathy. Left AVG Skin: Normal temperature, turgor and texture; no rash, ulcers or subcutaneous nodules Psych: affect gpod. Neuro: alert and oriented x 3. Moving all extremities - Constitutional Vitals: Vital Signs Temp Pulse Resp BP Pulse Ox 98.1 F 85 24 134/81 98 07/05/18 05:34 07/05/18 05:34 07/05/18 05:34 07/05/18 05:34 07/05/18 05:34 Temperature -Last 24 Hours Temperature 98.1 F Temperature 97.9 F Temperature 97.9 F Temperature 97.9 F - Labs CBC & Chem 7: 07/05/18 08:44 07/05/18 08:44 Labs: Abnormal lab results 07/04/18 Range/Units 07:07 Chloride 93.7 L (98-107) mmol/L BUN 44 H (7-17) mg/dL Creatinine 11.1 H (0.7-1.2) mg/dL ALT < 5 L (7-56) units/L Albumin 3.3 L (3.9-5) g/dL
[2018-07-05 09:23] LABS: Basophils # (Auto) 0.1 K/mm3 (0.0-0.1); Basophils % (Auto) 0.9 % (0.0-1.8); Eosinophils # (Auto) 0.2 K/mm3 (0.0-0.4); Eosinophils % (Auto) 2.8 % (0.0-4.3); Hematocrit 29.7 % (30.3-42.9); Hemoglobin 9.7 gm/dl (10.1-14.3); Lymphocytes # (Auto) 1.1 K/mm3 (1.2-5.4); Lymphocytes % (Auto) 18.2 % (13.4-35.0); Mean Corpuscular HGB Conc 33 % (30-34); Mean Corpuscular Volume 94 fl (79-97); Monocytes # (Auto) 0.4 K/mm3 (0.0-0.8); Monocytes % (Auto) 5.8 % (0.0-7.3); Platelet Count 291 K/mm3 (140-440); Red Blood Count 3.18 M/mm3 (3.65-5.03)
[2018-07-05 09:24] LABS: Red Cell Distribution Width 22.2 % (13.2-15.2)
[2018-07-05 09:37] LABS: Albumin 3.6 g/dL (3.9-5); Calcium 10.2 mg/dL (8.4-10.2)
[2018-07-05] MEDS: COREG PO SCH (10:37)
[2018-07-05] MEDS: APRESOLINE PO SCH (10:38)
[2018-07-05] MEDS: VITAMIN D2 PO SCH (10:38)
[2018-07-05] MEDS: PROCARDIA XL PO SCH (10:38)
[2018-07-05] MEDS: SODIUM CHLORIDE FLUSH SYRINGE 10 ML IV SCH (10:38)
--- NOTE | 2018-07-05 10:56 | XRay Report ---
AP CHEST: HISTORY: Cough, chest pain Compared to the CT chest dated 06/29/18. Mild cardiomegaly and borderline pulmonary vessels are stable. There is minimal residual opacity at the left lung base which could represent segmental atelectasis or residual infiltrate. Small left pleural effusion has resolved. The right lung is clear. The bony structures are demineralized but grossly intact. Osteolysis of the distal clavicles bilaterally is noted and is probably related to metabolic imbalance or previous trauma. IMPRESSION: Stable mild cardiomegaly. There is residual opacity at the left lung base since the previous CT but significant improvement is demonstrated. Small left pleural effusion has resolved.
--- NOTE | 2018-07-05 11:28 | Progress Note ---
Hospitalist Physical - Constitutional Vitals: Temp Pulse Resp BP Pulse Ox 98.1 F 85 24 134/81 98 07/05/18 05:34 07/05/18 10:37 07/05/18 05:34 07/05/18 10:37 07/05/18 05:34 General appearance: Present: no acute distress, well-nourished Results - Labs CBC & Chem 7: 07/05/18 08:44 07/05/18 08:44 Labs: Laboratory Last Values WBC 6.2 K/mm3 (4.5-11.0) 07/05/18 08:44 RBC 3.18 M/mm3 (3.65-5.03) L 07/05/18 08:44 Hgb 9.7 gm/dl (10.1-14.3) L 07/05/18 08:44 Hct 29.7 % (30.3-42.9) L 07/05/18 08:44 MCV 94 fl (79-97) 07/05/18 08:44 MCH 31 pg (28-32) 07/05/18 08:44 MCHC 33 % (30-34) 07/05/18 08:44 RDW 22.2 % (13.2-15.2) H 07/05/18 08:44 Plt Count 291 K/mm3 (140-440) 07/05/18 08:44 Lymph % (Auto) 18.2 % (13.4-35.0) 07/05/18 08:44 [place] % (Auto) 5.8 % (0.0-7.3) 07/05/18 08:44 Eos % (Auto) 2.8 % (0.0-4.3) 07/05/18 08:44 Baso % (Auto) 0.9 % (0.0-1.8) 07/05/18 08:44 Lymph # 1.1 K/mm3 (1.2-5.4) L 07/05/18 08:44 Overton # 0.4 K/mm3 (0.0-0.8) 07/05/18 08:44 Eos # 0.2 K/mm3 (0.0-0.4) 07/05/18 08:44 Baso # 0.1 K/mm3 (0.0-0.1) 07/05/18 08:44 Seg Neutrophils % 72.3 % (40.0-70.0) H 07/05/18 08:44 Seg Neutrophils # 4.5 K/mm3 (1.8-7.7) 07/05/18 08:44 PT 15.1 Sec. (12.2-14.9) H 06/27/18 16:23 INR 1.12 (0.87-1.13) 06/27/18 16:23 APTT 38.4 Sec. (24.2-36.6) H 06/27/18 16:23 Heparin Anti-Xa Level 0.10 U.I./ml (0.3-0.7) L 06/29/18 04:40 Sodium 138 mmol/L (137-145) 07/05/18 08:44 Potassium 4.3 mmol/L (3.6-5.0) 07/05/18 08:44 Chloride 94.2 mmol/L (98-107) L 07/05/18 08:44 Carbon Dioxide 26 mmol/L (22-30) 07/05/18 08:44 Anion Gap 22 mmol/L 07/05/18 08:44 BUN 17 mg/dL (7-17) 07/05/18 08:44 Creatinine 6.2 mg/dL (0.7-1.2) H 07/05/18 08:44 Estimated GFR 9 ml/min 07/05/18 08:44 BUN/Creatinine Ratio 3 % 07/05/18 08:44 Glucose 89 mg/dL (65-100) 07/05/18 08:44 Lactic Acid 0.80 mmol/L (0.7-2.0) 06/27/18 09:44 Calcium 10.2 mg/dL (8.4-10.2) 07/05/18 08:44 Phosphorus 6.70 mg/dL (2.5-4.5) H 07/03/18 06:04 Magnesium 1.90 mg/dL (1.7-2.3) 07/03/18 06:04 Total Bilirubin 0.30 mg/dL (0.1-1.2) 07/05/18 08:44 AST 18 units/L (5-40) 07/05/18 08:44 ALT 6 units/L (7-56) L 07/05/18 08:44 Alkaline Phosphatase 116 units/L (35-129) 07/05/18 08:44 Troponin T 0.017 ng/mL (0.00-0.029) 06/27/18 09:44 C-Reactive Protein 38.70 mg/dL (0.00-1.30) H 06/29/18 00:00 Total Protein 8.6 g/dL (6.3-8.2) H 07/05/18 08:44 Albumin 3.6 g/dL (3.9-5) L 07/05/18 08:44 Albumin/Globulin Ratio 0.7 % 07/05/18 08:44 Random Vancomycin 14.1 ug/mL (0-40.0) 06/30/18 06:17 Influenza A (Rapid) Negative (Negative) 07/02/18 11:45 Influenza A (RT-PCR) Negative (Negative) 07/02/18 11:45 Influenza B (Rapid) Negative (Negative) 07/02/18 11:45 Influenza B (RT-PCR) Negative (Negative) 07/02/18 11:45 Active Medications - Current Medications Current Medications: Generic Name Dose Route Start Last Admin Trade Name Freq PRN Reason Stop Dose Admin Acetaminophen 650 mg 06/27/18 11:51 06/30/18 23:00 Tylenol PO 650 mg Q4H PRN Administration Pain MILD(1-3)/Fever >100.5/LYLES Benzonatate 100 mg 06/30/18 21:40 06/30/18 22:50 Tessalon Perles PO 100 mg Q6HR PRN Administration Cough Carvedilol 25 mg 06/27/18 22:00 07/05/18 10:37 Coreg PO 25 mg BID PINA Administration Clonidine HCl 0.1 mg 06/27/18 22:00 07/04/18 22:12 Catapres PO 0.1 mg QHS PINA Administration Epoetin Thiago 10,000 unit 07/03/18 11:05 Procrit IV RADHA PRN hemodialysis Ergocalciferol 50,000 unit 06/28/18 10:00 07/05/18 10:38 Vitamin D2 PO 50,000 unit Tu PINA Administration Heparin Sodium (Porcine) 5,000 unit 06/29/18 22:00 07/05/18 06:00 Heparin SUB-Q Not Given Q8HR [facility] Heparin Sodium (Porcine) 2,000 unit 07/03/18 11:05 Heparin 10,000 Units/10 Ml IV RADHA PRN hemodialysis Heparin Sodium (Porcine) 5,000 unit 07/03/18 11:05 Heparin IV RADHA PRN hemodialysis Hydralazine HCl 100 mg 06/27/18 22:00 07/05/18 10:38 Apresoline PO 100 mg BID PINA Administration Hydralazine HCl 10 mg 06/27/18 19:04 06/29/18 17:33 Apresoline IV 10 mg Q4H PRN Administration BP >160/100 Ceftriaxone Sodium 2 gm in 100 mls @ 200 mls/hr 06/28/18 17:00 07/03/18 17:04 Rocephin/Ns 2 Gm/100 Ml IV 200 mls/hr Q24H PINA Administration Protocol Vancomycin HCl 1 gm in 250 mls @ 167.007 mls/hr 07/01/18 18:00 07/04/18 19:55 Vancomycin/Ns 1 Gm/250 Ml IV 167.007 mls/hr [id number] PINA Administration Sodium Chloride 100 mls @ 999 mls/hr 07/03/18 11:05 Nacl 0.9% IV RADHA PRN Hypotension Nifedipine 60 mg 06/27/18 22:00 07/05/18 10:38 Procardia Xl PO 60 mg BID PINA Administration Ondansetron HCl 4 mg 06/27/18 11:51 Zofran IV Q8H PRN Nausea And Vomiting Oxycodone/Acetaminophen 1 tab 06/27/18 11:21 07/02/18 18:50 Percocet 5/325 PO 1 tab Q6H PRN Administration Pain, Moderate (4-6) Sodium Chloride 10 ml 06/27/18 22:00 07/05/18 10:38 Sodium Chloride Flush Syringe 10 Ml IV 10 ml BID PINA Administration Sodium Chloride 10 ml 06/27/18 11:51 Sodium Chloride Flush Syringe 10 Ml IV PRN PRN LINE FLUSH
--- NOTE | 2018-07-05 18:21 | Discharge Summary ---
Providers - Providers Date of Admission: 06/29/18 09:46 Attending physician: MALCOLM RODRIGUES MD 06/27/18 08:28 Consult to Physician [CONS] Urgent Comment: Geetha in office notified @ 09:22am- [facility] Consulting Provider: RIOS HUGHES Physician Instructions: Reason For Exam: esrd 06/28/18 10:39 Consult to Physician [CONS] Routine Comment: Consulting Provider: MAKENZIE MAYER Physician Instructions: Reason For Exam: fever, pna 07/01/18 08:37 Consult to Case Management [CONS] Routine Services Needed at Discharge: Home Health Services Notified:: COPY LEFT FOR CM Additional Physician Instructions: [facility] ([facility] M [phone] O [phone] F [phone] OUTPATIENT PARENTERAL ANTIBIOTIC THERAPY ORDERS Diagnoses: Left Cavitating Pneumonia. Staph Epidermidis Bacteremia Antimicrobial administration: - Anticipate discharge on Vancomycin 1gm IV every 48 hours post HD until 07-12-18. Lines: Home HD via left AVG Lab monitoring: CBC, BUN, Creatinine, ALT, AST, vancomycin trough once a week preferly on Wednesday morning. Please fax results to [phone] and call [phone] for critical lab results. Kelly Vincent NP/Makenzie Valencia MD Date: 07/01/18 Primary care physician: [employer] Hospitalization Condition: Good Hospital course: 32F who presents with pleuritic left chest pain. She was found to have pneumonia. She was treated with antibiotics, she improved. Her blood cultures are positive for MRSE. She was treated with antibiotics, she will continue course of oral antibiotics with Zyvox upon discharge. -She was initially suspected of having possible tuberculosis, but her clinical picture did not fit with TB. AFB sputum was negative 1. Serial Chest x-ray shows improvement of infiltrates. Given that the clinical picture was not consistent with tuberculosis. Respiratory isolation was discontinued and the patient was given antibiotics to complete treatment of bacteremia and pneumonia. -She was screened for malaria given recent travel to endemic regions. Malaria parasite screening was negative. -VQ scan and CT angiogram were negative for PE Diagnosis ESRD- anuric htn PNA, sepsis Bacteremia r/o TB Disposition: - TO HOME OR SELFCARE Time spent for discharge: 35 minutes Core Measure Documentation - Palliative Care Palliative Care/ Comfort Measures: Not Applicable - Core Measures Any of the following diagnoses?: none Exam - Constitutional Vitals: Temp Pulse Resp BP Pulse Ox 98.0 F 91 H 18 151/100 100 07/05/18 17:20 07/05/18 17:20 07/05/18 17:20 07/05/18 17:20 07/05/18 17:20 General appearance: Present: no acute distress, well-nourished - EENT Eyes: Present: PERRL ENT: hearing intact, clear oral mucosa - Neck Neck: Present: supple, normal ROM - Respiratory Respiratory effort: normal Respiratory: bilateral: CTA - Cardiovascular Heart Sounds: Present: S1 & S2. Absent: rub, click - Extremities Extremities: pulses symmetrical, No edema Peripheral Pulses: within normal limits - Abdominal General gastrointestinal: Present: soft, non-tender, non-distended, normal bowel sounds Female genitourinary: Present: normal - Integumentary Integumentary: Present: clear, warm, dry - Musculoskeletal Musculoskeletal: gait normal, strength equal bilaterally - Psychiatric Psychiatric: appropriate mood/affect, intact judgment & insight - Neurologic Neurologic: CNII-XII intact, moves all extremities Plan Follow up with: PRIMARY CARE, [Primary Care Provider] - 3-5 Days Prescriptions: Linezolid [Zyvox] 600 mg PO BID #15 tablet
[2018-07-05 20:46] VITALS: BP 135/87
== END 2018-07-05 21:30 | disposition home or self-care (01) | DRG 193 ==
LOC: ED 21:21 → 3A 06-27 08:55 → OBSVTOIN 06-29 09:46
PROVIDERS: ADMIT Internal Medicine; ATTEND Internal Medicine
PROC: 5A1D70Z Performance of Urinary Filtration, Intermittent, Less than 6 Hours Per Day (ICD-10-PCS; principal; 2018-06-27)
PROC: 5A1D70Z Performance of Urinary Filtration, Intermittent, Less than 6 Hours Per Day (ICD-10-PCS; 2018-06-29)
PROC: 5A1D70Z Performance of Urinary Filtration, Intermittent, Less than 6 Hours Per Day (ICD-10-PCS; 2018-07-01)
PROC: 5A1D70Z Performance of Urinary Filtration, Intermittent, Less than 6 Hours Per Day (ICD-10-PCS; 2018-07-04)
DX: J18.9 Pneumonia, unspecified organism (principal); N18.6 End stage renal disease; A41.1 Sepsis due to other specified staphylococcus; I13.2 Hypertensive heart and chronic kidney disease with heart failure and with stage 5 chronic kidney disease, or end stage renal disease; Z99.2 Dependence on renal dialysis; Z95.828 Presence of other vascular implants and grafts; Z88.8 Allergy status to other drugs, medicaments and biological substances; Z79.899 Other long term (current) drug therapy; Z87.891 Personal history of nicotine dependence; Z91.19 Patient's noncompliance with other medical treatment and regimen
CPT/HCPCS: 36415; 71045; 71046; 71250; 71275; 78582; 80048; 80053; 80202; 82140; 83735; 84100; 84484; 85014; 85018; 85025; 85027; 85049; 85520; 85610; 85730; 86140; 87040; 87076; 87186; 87207; 87400; 93005; 93010; 93306; 93970; G0378; 87502; A9540; A9558; J0360; J0456; J0696; J0885; J1644; J1956; J2270; J3010; J3370; J7030; J7050; Q9967